=== PATIENT | male | born 1975 | race Caucasian/White ===

== ENCOUNTER 2020-02-09 06:40 | Outpatient (CLI) | payer OTHER, SELFPAY ==
--- NOTE | 2020-02-09 06:57 | ECHO_ITS ---
Patient Info Name: Atif Temple Age: 44 years : 1975 Gender: Male Ht: 66 in Wt: 168 lbs BSA: 1.90 m2 HR: 78 bpm BP: 120 / 80 mmHg Heart Rhythm: Sinus Rhythm Technical Quality: Good Exam Date: 02/09/2020 7:04 AM Exam Location: [facility] Patient Status: Outpatient Admit Date: 02/09/2020 Staff Ordering Physician: Cornelio Luke DO [employer]worker: Jannet Arias RDCS Attending Provider: Cornelio Luke DO Referring Physician: Ti GARCIA; Exam Type: CA echo doppler color flow Study Info Indications I42.9 - Cardiomyopathy, unspecified Complete two-dimensional, color flow and Doppler transthoracic echocardiogram is performed. Summary 1. Left ventricular chamber dimension is severely enlarged. 2. Left ventricular systolic function is severely reduced, estimated at 15-20%. 3. The left ventricular diastolic function is grade II diastolic dysfunction. 4. E/e' 16 is elevated. 5. Global longitudinal strain is abnormal at -7.5%. 6. Linear artifact in right ventricle suggestive of catheter(s), pacemaker lead(s), or ICD lead(s). 7. Linear artifact in the right atrium suggestive of catheter(s), pacemaker lead(s), or ICD lead(s). 8. There is mild mitral valve regurgitation. 9. There is mild tricuspid valve regurgitation. 10. No pulmonary hypertension, estimated pulmonary arterial systolic pressure is 27 mmHg. 11. There is trace pulmonic regurgitation. Left Ventricle E/e' 16 is elevated. Global longitudinal strain is abnormal at -7.5%. Left ventricular chamber dimension is severely enlarged. Left ventricular systolic function is severely reduced, estimated at 15-20%. The left ventricular diastolic function is grade II diastolic dysfunction. Right Ventricle Linear artifact in right ventricle suggestive of catheter(s), pacemaker lead(s), or ICD lead(s). Right ventricular chamber dimension is normal. Right ventricular systolic function is normal. Left Atria Left atrial chamber dimension is normal. Right Atria Linear artifact in the right atrium suggestive of catheter(s), pacemaker lead(s), or ICD lead(s). Right atrial chamber dimension is normal. Aortic Valve The aortic valve is trileaflet. There is no aortic valve stenosis. There is no aortic valve regurgitation. Pulmonic Valve There is trace pulmonic regurgitation. Mitral Valve There is no mitral valve stenosis. There is mild mitral valve regurgitation. Tricuspid Valve There is mild tricuspid valve regurgitation. No pulmonary hypertension, estimated pulmonary arterial systolic pressure is 27 mmHg. Pericardium/Pleural There is trivial pericardial effusion. Inferior Vena Cava Normal inferior vena cava with >50% collapse upon inspiration consistent with normal right atrial pressure, 5 mmHg. Aorta The aortic root size at the sinus of Valsalva is normal. Left Ventricular Outflow Tract Name Value Normal LVOT 2D LVOT Diameter 2.0 cm LVOT Doppler LVOT Peak Velocity 126 cm/s LVOT Peak Gradient 6 mmHg LVOT Mean Gradient 3 mmHg L
== END 2020-02-09 06:41 | disposition home or self-care (01) ==
PROVIDERS: Visit Provider Internal Medicine Cardiovascular Disease
DX: I42.8 Other cardiomyopathies (principal); I08.3 Combined rheumatic disorders of mitral, aortic and tricuspid valves
CPT/HCPCS: 93306

== ENCOUNTER 2020-03-27 13:30 | Emergency (ER) | payer OTHER, SELFPAY ==
[2020-03-27 13:38] VITALS: BP 137/88; PULSE 90; RESP 12; TEMP 36.1; O2SAT 100
--- NOTE | 2020-03-27 14:10 | ED.EAR ---
HPI - Ear Problem General Chief complaint: Ear Stated complaint: left ear pain Time Seen by Provider: 03/27/20 13:40 History of Present Illness HPI Narrative: Patient is a 44-year-old male who presents ER with left ear pain. Worsening over the last 3 days. He put some peroxide in his ear which minimally improved his symptoms. He has no fever/chills/sweats. No ear drainage. Pain is worse with a normal relation of the left ear. He has no rash over his nose or his face or his ear. He has no change in his vision. He has not been swimming in any lakes or streams, he has not been in a hot tub. Concerned he may have an ear infection. Patient does report there is a tingling that radiates from his left ear into his right mandibular region and the side of his neck. Reports hearing is muffled in the left ear. Related Data Home Medications Medication Instructions Recorded Confirmed carvedilol 12/03/19 spironolactone 12/03/19 lisinopril 40 mg tablet 40 mg PO DAILY 02/28/20 02/28/20 Allergies Allergy/AdvReac Type Severity Reaction Status Date / Time No Known Allergies Allergy Verified 10/20/19 08:29 Review of Systems Review of Systems: All systems reviewed & are unremarkable except as noted in HPI and below Constitutional: Constitutional: Denies chills and Denies fever(s) ENT: Denies ear discharge, Reports otalgia, Denies facial pain, Reports hearing loss, Denies mouth pain, Denies nasal congestion, Denies neck pain, Denies tinnitus and Denies sore throat PMFSH Social History Social History Years smoked: 10 Smoking status: Current some day smoker Tobacco type: cigarettes Second hand tobacco smoke exposure: Yes Alcohol intake: current Exam Narrative: Exam Narrative: GENERAL: Well-appearing, well-nourished, and in no acute distress. HEAD: Normocephalic, atraumatic. EYES: PERRL and EOMI. ENT: Mucous membranes moist. Normal-appearing nose externally. Right tympanic membrane and ear canal are normal. Left tympanic membrane appears normal and intact however the ear canal was erythematous and slightly edematous. There is one area where is difficult to tell if there is a blister/vesicle/piece of dry skin. Patient has pain with manual manipulation of the left ear. The external ear shows no erythema/swelling/vesicles. There is no additional skin rashes to the face or nose. There is no facial droop. No mastoid tenderness or swelling on the left side. NECK: Supple. SKIN: Warm, dry, no rash. NEURO: No focal deficits. Alert and oriented x3. PSYCH: Normal mood and affect. Course Course Emergency Course: Discussed with patient that would like to treat him for an external ear infection as well as shingles. I am being very cautious as shingles that affects this nerve distribution can be quite debilitating and cause potentially facial paralysis or weakness. Patient be started on Ciprodex as well as acyclovir. He has been instructed to follow-up with his primary care physician. Vital Signs Vital signs: Vital Signs Temperature 96.9 F L 03/27/20 13:38 Pulse Rate 90 03/27/20 13:38 Respiratory Rate 12 03/27/20 13:38 Blood Pressure 137/88 03/27/20 13:38 Pulse Oximetry 100 03/27/20 13:38 Temperature 96.9 F L 03/27/20 13:38 Pulse Rate 90 03/27/20 13:38 Respiratory Rate 12 03/27/20 13:38 Blood Pressure 137/88 03/27/20 13:38 Pulse Oximetry 100 03/27/20 13:38 Medical Decision Making Vital Signs Vital Signs: Vital Signs Temperature 96.9 F L 03/27/20 13:38 Pulse Rate 90 03/27/20 13:38 Respiratory Rate 12 03/27/20 13:38 Blood Pressure 137/88 03/27/20 13:38 Pulse Oximetry 100 03/27/20 13:38 Temperature 96.9 F L 03/27/20 13:38 Pulse Rate 90 03/27/20 13:38 Respiratory Rate 12 03/27/20 13:38 Blood Pressure 137/88 03/27/20 13:38 Pulse Oximetry 100 03/27/20 13:38 Discharge Plan Discharge Clinical Impre
[2020-03-27 14:19] VITALS: BP 134/75; PULSE 80; RESP 16; O2SAT 99
== END 2020-03-27 14:21 | disposition home or self-care (01) ==
PROVIDERS: Emergency Provider Emergency Medicine; PCP Internal Medicine
DX: H60.92 Unspecified otitis externa, left ear (principal); B02.9 Zoster without complications; F17.210 Nicotine dependence, cigarettes, uncomplicated
CPT/HCPCS: 99283

== ENCOUNTER 2020-07-16 07:22 | Outpatient (CLI) | payer MEDICARE, MEDICAID, SELFPAY ==
--- NOTE | 2020-07-23 02:57 | SLEEP_ITS ---
Home Sleep Study DATE OF STUDY: 07/16/2020 ORDERING PHYSICIAN: Dr. Cornelio Luke. REASON FOR THE STUDY: Hypersomnia. HISTORY: This patient is a 44-year-old male, 5 feet 6 inches tall, weighing 170 pounds with a body mass index of 27.4. He complains of difficulty falling asleep at night and excessive daytime sleepiness. He rarely snores and it is not loud enough that others complain about it. He occasionally awakens at night with heartburn, belching, or coughing. He rarely awakens from sleep feeling short of breath. He constantly has trouble sleeping with a cold. Rarely gasps for breath at night, occasionally has breathing problems at night observed by his . He does not sweat excessively at night. He frequently notices his heart pounding or beating irregularly at night. He occasionally falls asleep during the day occasionally involuntarily, rarely while driving, occasionally during physical effort. He does not fall asleep with emotion, but he does occasionally have loss of muscle tone with strong emotion. He occasionally has daytime difficulties due to excessive sleepiness. He is currently retired. He is 44 years old and I do not know what his prior job was. He constantly has vivid dreamlike scenes upon awakening or falling asleep. He constantly is afraid to go to sleep. He occasionally has nightmares. He rarely remembers his dreams. He constantly has racing thoughts. He occasionally feels sad, depressed, and anxious. He constantly has muscular tension. He frequently notices parts of his body jerking. He does not kick at night. He occasionally has crawly achy feelings in his legs and leg pain at night. He does not have morning jaw pain. He does not grind his teeth during sleep. He is constantly bothered by pain during the day, occasionally is awakened by pain at night. He constantly wakes up feeling stiff in the morning with sore achy muscles and pain in the neck and spine. He has dizziness, fatigue, memory problems, insomnia, concentration difficulties, difficulties making decisions, feels tensed and is unable to relax. Bedtime is 10:30 to 11 p.m., taking 2-3 hours to fall asleep, occasionally waking at night. During that time, he will get up and watch television. He does not list what time he wakes in the morning. Bedtime on the weekends is between 1 a.m. and 3 a.m. He does not take naps. A short nap may be refreshing. He feels better in the morning than other times of day. MEDICAL COMORBIDITIES: Hypertension, nonischemic cardiomyopathy, implantable cardioverter defibrillator, smoking. MEDICATIONS: 1. Lisinopril 40 mg a day. 2. Spironolactone 25 mg a day. 3. Carvedilol 50 mg twice a day. HABITS: Tobacco, a quarter pack per day. Caffeine, 4 or 5 daily. Alcohol is on average less than 1 daily. DESCRIPTION OF THE STUDY: On the [place] Sleepiness Scale, his score is 12, elevated. This was conducted as an unattended type III portable home sleep test with 4-channel monitoring including respiratory effort channel, snoring channel, oxygen saturation channel, and heart rate channel. The study was scored using [facility] guidelines. Duration was 8 hours 25 minutes. Apnea-hypopnea index was 3.2. Oxygen desaturation index is 3.1. Lowest desaturation is 87%. He had 1 central apnea, 26 hypopneas, 142 snoring events and desaturated 26 times spending 2 minutes below 88% saturation. Heart rate ranged from 48 which is normal up to 107, which is slightly elevated. IMPRESSION: 1. This home sleep study does not show evidence of significant sleep-disordered breathing. The apnea-hypopnea index is 3.2. However, he does have a low baseline average saturation of 93%, and desaturation to 87%, so he does have some nocturnal hypoxemia. This is a concern g
== END 2020-07-16 07:23 | disposition home or self-care (01) ==
LOC: ANHCSM 07:23
PROVIDERS: PCP Internal Medicine; Visit Provider Internal Medicine Cardiovascular Disease
DX: G47.10 Hypersomnia, unspecified (principal)
CPT/HCPCS: 95806

== ENCOUNTER 2020-08-12 08:12 | Outpatient (CLI) | payer MEDICARE, MEDICAID, SELFPAY ==
[2020-08-12 08:40] LABS: Basophils Absolute Auto 0.1 K/mm3 (0.0-0.1); Basophils Percent Auto 1.1 % (0.2-1.2); Eosinophils Absolute Auto 0.4 K/mm3 (0-0.3); Eosinophils Percent Auto 6.1 % (0-4.4); Hematocrit 40.2 % (42.0-52.0); Hemoglobin 13.8 g/dL (14.0-18.0); Immature Granulocyte Absolute 0.01 K/mm3 (0.00-0.031); Immature Granulocyte Percent A 0.1 % (0-0.5); Lymphocytes Absolute Auto 2.65 K/mm3 (0.9-3.2); Lymphocytes Percent Auto 36.9 % (18.3-44.2); Mean Corpuscular HGB Conc 34.3 g/dl (32-36); Mean Corpuscular Hemoglobin 30.8 pg (26-34); Mean Corpuscular Volume 89.7 fl (80-100); Mean Platelet Volume 12.5 fl (7.4-10.4); Monocytes Absolute Auto 0.6 K/mm3 (0.1-0.6); Monocytes Percent Auto 8.2 % (2.6-8.5); Neutrophils Absolute Auto 3.4 K/mm3 (1.3-6.7); Neutrophils Percent Auto 47.6 % (45.5-73.1); Platelet Count Result 124 k/mm3 (150-375); Red Blood Count 4.48 M/mm3 (4.6-6.20); Red Cell Distribution Width 12.6 % (11.5-14.5); White Blood Count 7.2 K/mm3 (4.5-10.0)
[2020-08-12 08:46] LABS: Hemoglobin A1C 6.6 % (<5.7)
[2020-08-12 08:49] LABS: Alanine Aminotransferase 21 U/L (4-50); Albumin Level 4.2 g/dL (3.5-5.1); Alkaline Phosphatase 32 U/L (38-126); Anion Gap 4 mmol/L (8-16); Aspartate Amino Transferase 19 U/L (17-59); Bilirubin,Total 0.3 mg/dL (0.2-1.3); Blood Urea Nitrogen 20 mg/dL (9-20); Calcium 9.1 mg/dL (8.4-10.2); Carbon Dioxide 25 mmol/L (22-30); Chloride 106 mmol/L (98-107); Cholesterol 157 mg/dL (0-200); Estimated Glomerular Filt Rate > 60; Glucose 136 mg/dL (75-110); HDL Direct 34 mg/dL; Potassium 4.7 mmol/L (3.4-5.0); Sodium 135 mmol/L (137-145); Triglycerides 197 mg/dL (<150)
[2020-08-12 09:00] LABS: LDL Cholesterol Direct 99 mg/dL
[2020-08-12 09:17] LABS: Creatinine Urine 104.8 mg/dL
[2020-08-12 09:34] LABS: MALB Creatinine Ratio < 5.7 mg/g (0-30); Microalbumin Urine Random < 6.0 mg/L (0-16.7)
[2020-08-16 04:20] LABS: Insulin Level Total 20.4 uIU/mL (<=19.6)
[2020-08-16 13:50] LABS: C-Peptide 3.08 ng/mL (0.80-3.85)
[2020-08-16 17:09] LABS: Glutamic acid decarboxylase AA <5 IU/mL (<5)
== END 2020-08-12 08:13 | disposition home or self-care (01) ==
LOC: ANHLAB 08:18
PROVIDERS: PCP Internal Medicine; Visit Provider Internal Medicine Endocrinology, Diabetes & Metabolism
DX: E11.9 Type 2 diabetes mellitus without complications (principal); E10.9 Type 1 diabetes mellitus without complications
CPT/HCPCS: 36415; 80053; 80061; 82043; 83036; 83525; 84681; 85025; 86341

== ENCOUNTER 2020-08-15 18:51 | Emergency (ER) | payer MEDICARE, MEDICAID, SELFPAY ==
--- NOTE | ~2020-08-15 | US_ITS ---
EXAMINATION: US scrotum doppler DATE: 08/15/2020 21:22 INDICATION: Right testicular pain TECHNIQUE: Testicular sonogram utilizing grayscale and Doppler COMPARISON: None. FINDINGS: The right testis measures 4.0 x 2.0 x 4.0 cm. The left testis measures 3.3 x 2.0 x 3.0 cm. There is normal vascular flow to both testes. The right epididymis is normal with normal vascular leonardo w. The left epididymis is normal with normal vascular flow. A tiny right hydrocele is noted. IMPRESSION: 1. No sonographic correlate for the patient's symptoms. Reviewed, dictated and finalized at location A.
[2020-08-15 18:56] VITALS: BP 163/109; PULSE 96; RESP 13; TEMP 36.6; O2SAT 100
--- NOTE | 2020-08-15 19:11 | ED.MALEGU ---
HPI - Male Genitourinary General Chief complaint: Urogenital-Male Stated complaint: flank, testicle pain Time Seen by Provider: 08/15/20 19:03 Source: patient History of Present Illness HPI Narrative: Pt c/o right testicular pain started 1 week. Pt states his pain is 6/10, aching. Denies any swelling. Denies any injury to the area. Related Data Home Medications Medication Instructions Recorded Confirmed carvedilol 12/03/19 06/03/20 spironolactone 12/03/19 06/03/20 lisinopril 40 mg tablet 40 mg PO DAILY 02/28/20 06/03/20 Allergies Allergy/AdvReac Type Severity Reaction Status Date / Time No Known Allergies Allergy Verified 08/15/20 20:53 Review of Systems Review of Systems: All systems reviewed & are unremarkable except as noted in HPI and below Constitutional: Constitutional: Denies body ache(s), Denies chills, Denies excessive sweating, Denies fatigue, Denies fever(s), Denies headache(s), Denies lethargy, Denies malaise, Denies weakness and Denies weight loss Eyes: Eyes: Denies blurry vision, Denies change in vision and Denies loss of vision ENT: Denies dizziness, Denies ear discharge, Denies headache(s), Denies lip swelling, Denies epistaxis, Denies nasal congestion, Denies neck pain, Denies throat swelling and Denies tongue swelling Cardiovascular: Cardiovascular: Denies chest pain, Denies chest pain at rest, Denies chest pain with activity, Denies diaphoresis, Denies rapid heart rate, Denies edema, Denies irregular heart rhythm, Denies lightheadedness, Denies palpitations, Denies dyspnea and Denies dyspnea on exertion Respiratory: Respiratory: Denies chest congestion, Denies cough, Denies hemoptysis, Denies dyspnea and Denies dyspnea on exertion Gastrointestinal: Gastrointestinal: Denies abdominal pain, Denies melena, Denies hematochezia, Denies diarrhea, Denies nausea, Denies vomiting and Denies hematemesis Musculoskeletal: Musculoskeletal: Denies abnormal gait, Denies deformity, Denies joint swelling, Denies limited range of motion, Denies neck pain and Denies numbness Neurologic: Denies Abnormal speech present, Denies abnormal gait, Denies confusion, Denies dizziness, Denies headache(s), Denies focal weakness, Denies loss of vision, Denies numbness, Denies Other visual disturbances, Denies Sensory deficit (Neuro) and Denies weakness Psychiatric: Psychiatric: Denies confusion, Denies depression, Denies auditory hallucinations, Denies homicidal ideation and Denies suicidal ideation Endocrine: Endocrine: Denies cold intolerance, Denies excessive sweating, Denies fatigue, Denies heat intolerance and Denies palpitations Hematologic/Lymphatic: Hematologic/Lymphatic: Denies easy bleeding and Denies easy bruising Allergic/Immunologic: Allergic/Immunologic: Denies lip swelling, Denies throat swelling and Denies tongue swelling PMFSH Social History Social History Years smoked: 10 Smoking status: Current some day smoker Tobacco type: cigarettes Second hand tobacco smoke exposure: Yes Alcohol intake: current Exam Const: General: cooperative, healthy appearing, comfortable, no acute distress, well developed, alert and awake; No confusion Orientation/consciousness: oriented to person, oriented to place, oriented to time, patient oriented x3 and No confusion Limitations: no limitations HENMT: Head: normal to inspection, normocephalic and atraumatic Ears: hearing grossly normal bilaterally, TM normal on the right and TM normal on the left General nose exam: Normal external nose present, Normal nares present and No nasal discharge present Face and sinus: normal facial exam Mouth: Yes Normal oral and palatal mucosa present, Yes lip normal, Yes tongue normal and Yes oropharynx normal Throat: posterior oropharynx normal, tonsils normal and uvula midline Eyes: General: appearance normal, both eyes and all related structures Pupils: Equal, round and reactive pupils prese
[2020-08-15 19:41] VITALS: BP 145/89; PULSE 88; RESP 17; O2SAT 98
[2020-08-15 19:56] LABS: Add Urine Microscopic? NO; Appearance Urine Clear (Clear); Bilirubin Urine Negative (Negative); Blood Urine Negative (Negative); Color Urine Colorless (Yellow); Glucose Urine UA Negative (Negative); Ketones Urine Negative (Negative); Leukocyte Esterase Ur Negative LEU/UL (Negative); Nitrate Urine Negative (Negative); Protein Urine Negative (Negative); Specific Grav Ur 1.005 (1.001-1.035); Urobilinogen Urine Negative mg/dL (<2.0)
[2020-08-15 19:57] LABS: RBC Urine 0-2 /hpf (0-2); WBC Urine 0-3 /hpf
--- NOTE | 2020-08-15 20:39 | PC.NURSE ---
Ultrasound called in at 194.
[2020-08-15 20:40] VITALS: BP 153/91; PULSE 85; RESP 15; O2SAT 98
[2020-08-15] MEDS: KETOROLAC (*BKC) 60 MG/2 ML VIAL 30 MG IM (20:52)
[2020-08-15 22:20] VITALS: BP 151/88; PULSE 80; RESP 17; O2SAT 96
== END 2020-08-15 22:20 | disposition home or self-care (01) ==
PROVIDERS: Emergency Provider Emergency Medicine
DX: N50.811 Right testicular pain (principal); F17.210 Nicotine dependence, cigarettes, uncomplicated
CPT/HCPCS: 76870; 81003; 93976; 96372; 99284; J1885

== ENCOUNTER 2020-08-20 08:35 | Outpatient (CLI) | payer MEDICARE, MEDICAID, SELFPAY ==
[2020-08-20 09:28] LABS: Immature Reticulocyte Fraction 8.7 % (3.0-15.9); Reticulocyte Hemoglobin Conten 34.3 pg (28.2-35.7); Reticulocytes Absolute 0.06 B/L (32.2-175.7)
[2020-08-20 10:08] LABS: Iron 60 ug/dL (49-181)
[2020-08-20 10:33] LABS: Percent Iron Saturation 18 % (20-50)
[2020-08-20 11:31] LABS: Folic Acid 13.5 ng/mL (2.76->20)
[2020-08-20 12:40] LABS: IFOB Positive Control Positive; Immunochemical Fecal Occult Bl Negative (N)
== END 2020-08-20 08:36 | disposition home or self-care (01) ==
PROVIDERS: Visit Provider Internal Medicine Endocrinology, Diabetes & Metabolism
DX: D64.9 Anemia, unspecified (principal)
CPT/HCPCS: 36415; 82274; 82607; 82728; 82746; 83540; 83550; 85046

== ENCOUNTER 2020-11-29 18:49 | Emergency (ER) | payer MEDICARE, MEDICAID, SELFPAY ==
--- NOTE | ~2020-11-29 | XR_ITS ---
EXAMINATION: XR chest 2V EXAM DATE: 11/29/2020 19:19 INDICATION: Central chest pain, shortness of breath. TECHNIQUE: Frontal and lateral projections of the chest obtained and reviewed. Comparison is made to prior examination from 12/03/2019. FINDINGS: There is single lead pacemaker/AICD device seen with tip projecting over the expected loca tion of right ventricle. The lungs are clear. There are no pleural effusions. The cardiomediastinal silhouette is within normal limits. There is no pneumothorax suspected. The bones and soft tissues are unremarkable. There are cholecystectomy clips. IMPRESSION: No acute cardiopulmonary findings. Reviewed, dictated and finalized at location A. 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
--- NOTE | 2020-11-29 18:55 | ECG_ITS ---
Measurements Intervals [place] Rate: 89 P: 38 VT: 166 QRS: -24 QRSD: 117 T: 20 QT: 350 QTc: 427 Interpretive Statements SINUS RHYTHM INTRAVENTRICULAR CONDUCTION DELAY DELAYED PRECORDIAL R/S TRANSITION LEFT VENTRICULAR HYPERTROPHY AND ST-T CHANGE BORDERLINE T WAVE ABNORMALITY- INFERIOR LEADS BASELINE WANDER- II, III BORDERLINE ECG Electronically Signed On 11-30-2020 7:20:25 [facility] by Cornelio Luke D.O.
[2020-11-29 18:56] VITALS: PULSE 88; RESP 18; TEMP 36.3; O2SAT 100
[2020-11-29 18:59] VITALS: PULSE 93; O2SAT 97
[2020-11-29 19:10] LABS: Basophils Absolute Auto 0.1 K/mm3 (0.0-0.1); Basophils Percent Auto 0.9 % (0.2-1.2); Eosinophils Absolute Auto 0.5 K/mm3 (0-0.3); Eosinophils Percent Auto 5.5 % (0-4.4); Hematocrit 41.2 % (42.0-52.0); Hemoglobin 14.4 g/dL (14.0-18.0); Immature Granulocyte Absolute 0.06 K/mm3 (0.00-0.031); Immature Granulocyte Percent A 0.6 % (0-0.5); Lymphocytes Absolute Auto 3.63 K/mm3 (0.9-3.2); Mean Corpuscular Hemoglobin 30.3 pg (26-34); Mean Corpuscular Volume 86.7 fl (80-100); Mean Platelet Volume 12.2 fl (7.4-10.4); Monocytes Absolute Auto 0.8 K/mm3 (0.1-0.6); Monocytes Percent Auto 8.4 % (2.6-8.5); Neutrophils Absolute Auto 4.7 K/mm3 (1.3-6.7); Neutrophils Percent Auto 47.6 % (45.5-73.1); Platelet Count Result 149 k/mm3 (150-375); Red Blood Count 4.75 M/mm3 (4.6-6.20); Red Cell Distribution Width 12.5 % (11.5-14.5); White Blood Count 9.8 K/mm3 (4.5-10.0)
--- NOTE | 2020-11-29 19:17 | ED.CHESTPAIN ---
HPI - Chest Pain General Chief Complaint: Chest Pain Stated Complaint: sob Time Seen by Provider: 11/29/20 19:02 Source: RN notes reviewed History of Present Illness HPI narrative: Patient presents emergency department from home for chest pain. Patient states he had been working with some insulation when the insulation had fallen down. He states at that time he is able to clean it up as he was wearing gloves but states he was not wearing a mask he states he did have some rhinorrhea at that point patient states shortly later he come inside and began to experience chest pain over the left side of the chest as well as shortness of breath that she continues to have. Patient states nothing makes the pain better or worse he does note some mild nausea with the pain he denies any fevers or chills vomiting diarrhea or any other symptoms he states he felt fine earlier today prior to this episode Related Data Home Medications Medication Instructions Recorded Confirmed carvedilol 12/03/19 06/03/20 spironolactone 12/03/19 06/03/20 Allergies Allergy/AdvReac Type Severity Reaction Status Date / Time No Known Allergies Allergy Verified 08/15/20 20:53 Review of Systems Review of Systems: Narrative: Gen.: Denies fevers or chills Eyes: Denies eye pain or visual change ENT: Reports rhinorrhea Respiratory: Denies shortness of breath or cough CV: Reports chest pain GI: Denies abdominal pain, reports nausea emesis or diarrhea Musculoskeletal: Denies back pain or muscle pain Neuro: Denies numbness, tingling, weakness or focal weakness Skin: Denies rash Except as documented, all other systems reviewed and negative [facility] Past Medical History Medical History (Updated 11/29/20 @ 22:38 by Boubacar Olivares DO) Asthma Cardiomyopathy CHF (congestive heart failure) History of chemotherapy History of radiation therapy Hodgkin lymphoma HTN (hypertension) Pacemaker Surgical History Surgical History History of appendectomy History of cardiac defibrillator placement History of cholecystectomy History of removal of Port-a-Cath History of surgery Lymph node resection's Family History Family History Mother Diabetes mellitus Family history of cardiovascular disease Hypertension Family history of diabetes mellitus in first degree relative Father Family history of cardiovascular disease Family history of malignant neoplasm Family history of heart disease in male family member before age 55 Other Family history of lung disease Social History Social History Years smoked: 10 Smoking status: Current some day smoker Tobacco type: cigarettes Second hand tobacco smoke exposure: Yes Alcohol intake: current Gender identity (if verbalized by the patient): Male Exam Narrative: Exam Narrative: APPEARANCE: No acute distress, nontoxic, resting in bed EYES: EOMI HEENT: Normocephalic, atraumatic, OMM RESPIRATORY: No respiratory distress Clear to auscultation bilaterally with no rhonchi wheezing or rales. CARDIOVASCULAR: Regular rate and rhythm without murmurs rubs or gallops. ABDOMINAL: Soft, nontender, nondistended, no rebound or guarding MUSCULOSKELETAl: Moves all extremities. No clubbing, cyanosis or edema. NEURO: Awake and alert. Following commands, speech normal, no focal deficits SKIN:: Warm, dry. No rashes lesions or abrasions PSYCHIATRIC: Normal affect/mood, Course Course Emergency Course: Reviewed old records Called and discussed with Dr. Luke presentation work-up agrees with admission at this time When discussed with patient he does not wish to be admitted at this time. I discussed with him my conversation with Dr. Qureshi as well as his medical history discussed concern for heart attack and need for serial troponins as they can not become elevated
[2020-11-29 19:20] LABS: Partial Thromboplastin Time 22.2 SECONDS (22.3-36.8); Prothrombin Time 13.8 Seconds (11.1-14.7)
[2020-11-29] MEDS: ASPIRIN 81 MG CHEWABLE TABLET 324 MG PO (19:35)
[2020-11-29 19:37] LABS: Alanine Aminotransferase 37 U/L (4-50); Albumin Level 4.6 g/dL (3.5-5.1); Alkaline Phosphatase 45 U/L (38-126); Anion Gap 9 mmol/L (8-16); Aspartate Amino Transferase 28 U/L (17-59); Bilirubin,Total 0.5 mg/dL (0.2-1.3); Blood Urea Nitrogen 21 mg/dL (9-20); Calcium 9.7 mg/dL (8.4-10.2); Carbon Dioxide 24 mmol/L (22-30); Chloride 105 mmol/L (98-107); Estimated CRCL calculation 89 ml/min; Estimated Glomerular Filt Rate > 60; Glucose 118 mg/dL (75-110); Lipase 101 U/L (23-300); Potassium 4.1 mmol/L (3.4-5.0); Sodium 138 mmol/L (137-145)
[2020-11-29] MEDS: MORPHINE SULFATE (*CRX) 2 MG/ML INJ IV PUSH (19:41)
[2020-11-29 19:48] LABS: NT Pro B Type Natriuretic Pept 230 PG/ML (5-100); Troponin I < 0.012 ng/mL (0.000-0.034)
[2020-11-29 22:28] LABS: Troponin I 0.013 ng/mL (0.000-0.034)
--- NOTE | 2020-11-29 23:27 | PC.NURSE ---
Patient Left AMA.
== END 2020-11-29 23:25 | disposition left against medical advice (07) ==
PROVIDERS: Emergency Medicine; Emergency Provider Emergency Medicine
DX: R07.9 Chest pain, unspecified (principal); J45.909 Unspecified asthma, uncomplicated; I50.9 Heart failure, unspecified; I10 Essential (primary) hypertension; Z95.0 Presence of cardiac pacemaker; Z92.21 Personal history of antineoplastic chemotherapy; Z92.3 Personal history of irradiation; Z85.71 Personal history of Hodgkin lymphoma; F17.210 Nicotine dependence, cigarettes, uncomplicated; I45.9 Conduction disorder, unspecified; R94.31 Abnormal electrocardiogram [ECG] [EKG]; I51.7 Cardiomegaly
CPT/HCPCS: 36415; 71046; 80053; 82248; 83690; 83880; 84484; 85025; 85610; 85730; 93005; 96374; 99284; A9270; J2270

== ENCOUNTER 2020-12-11 11:21 | Outpatient (CLI) | payer MEDICARE, MEDICAID, SELFPAY ==
[2020-12-19 09:45] LABS: FECFAT Total Specimen Weight 358 g; Fecal Lipids, 24 hr 10 g/24 h (<7)
== END 2020-12-11 11:22 | disposition home or self-care (01) ==
PROVIDERS: Visit Provider Internal Medicine Endocrinology, Diabetes & Metabolism
DX: E11.9 Type 2 diabetes mellitus without complications (principal); R19.7 Diarrhea, unspecified
CPT/HCPCS: 36415; 82710; 83520

== ENCOUNTER 2020-12-15 20:02 | Emergency (ER) | payer MEDICARE, MEDICAID, SELFPAY ==
--- NOTE | ~2020-12-15 | XR_ITS ---
EXAMINATION: XR chest 2V EXAM DATE: 12/15/2020 20:25 INDICATION: swallowed nail,hx chf,asthma,htn,pacemaker, stuck in throat . TECHNIQUE: Frontal and lateral projections of the chest obtained and reviewed. Comparison is made to prior examination from 11/29/2020. FINDINGS: There is single lead pacemaker/AICD device seen with tip projecting over the expected loca tion of right ventricle. There are cholecystectomy clips. No other radiopaque foreign bodies. No conf luent consolidation, pneumothorax or pleural effusion suspected. Cardiomediastinal silhouette is nor mal. Mild thoracic spondylosis. IMPRESSION: Pacemaker, cholecystectomy clips. Reviewed, dictated and finalized at location A. PUSHER
--- NOTE | ~2020-12-15 | XR_ITS ---
EXAMINATION: XR abdomen/kub 1V EXAM DATE: 12/15/2020 20:24 INDICATION: Accident 20 swallowed nail(S) X30 minutes ago, left-sided abdominal pain. TECHNIQUE: Frontal projection of the upper abdomen, frontal projection lower abdomen/pelvis for inter pretation. There is no prior study for comparison. FINDINGS: There are cholecystectomy clips. Single lead pacemaker/AICD device. Nonobstructive bowel g as pattern. There is no organomegaly. There are mild bony degenerative changes. Lung bases unremarkab le. IMPRESSION: Unremarkable KUB exam. Reviewed, dictated and finalized at location A. SHOE PERSON IMPRESSION: Unremarkable KUB exam.
--- NOTE | ~2020-12-15 | XR_ITS ---
EXAMINATION: XR soft tissue neck EXAM DATE: 12/15/2020 21:11 INDICATION: Swallowed a nail. TECHNIQUE: Frontal and lateral projections of the neck. There is no prior study for comparison. FINDINGS: Pacemaker and glasses are the only radiopaque foreign bodies identified on this soft tissue neck examination. Prevertebral soft tissue and pre-dens space are within normal limits. Airway is un remarkable. Mild cervical spondylosis. IMPRESSION: Unremarkable soft tissue neck exam. Reviewed, dictated and finalized at location A. S FARMER
[2020-12-15 20:07] VITALS: BP 150/98; PULSE 89; RESP 20; TEMP 36.7; O2SAT 99
--- NOTE | 2020-12-15 20:52 | ED.SKABFB ---
HPI - Skin/Abscess/Foreign Bdy General Chief complaint: Skin/Abscess/Foreign Body Stated complaint: swallowed nails Time Seen by Provider: 12/15/20 20:27 History of Present Illness HPI narrative: Patient is a 44-year-old male who presents ER with concerns for ingesting some nails. Reports he was holding some small nails in his mouth while he was looking up hammering into the ceiling. He felt similar nail slide back into his throat and then he believes he swallowed an unknown quantity. He felt that sticking [place] and had episodes of emesis. He reports he did vomit up 1 male. He still has a little tickle in his throat. No difficulty breathing or swallowing at this time. Reports mild anxiousness and left upper quadrant discomfort. Related Data Home Medications Medication Instructions Recorded Confirmed carvedilol 12/03/19 12/09/20 spironolactone 12/03/19 12/09/20 atorvastatin 10 mg tablet 10 mg PO DAILY 12/09/20 12/09/20 Allergies Allergy/AdvReac Type Severity Reaction Status Date / Time No Known Allergies Allergy Verified 12/09/20 09:58 Review of Systems Constitutional: Constitutional: Denies chills, Denies fever(s) and Denies weakness ENT: Denies dysphagia, Denies nasal congestion and Reports sore throat Respiratory: Respiratory: Denies cough, Denies dyspnea and Denies wheezing Gastrointestinal: Gastrointestinal: Reports abdominal pain, Reports nausea and Reports vomiting PMFSH Past Medical History Medical History (Updated 12/15/20 @ 21:23 by Santhosh Morales MD) Asthma Cardiomyopathy CHF (congestive heart failure) History of chemotherapy History of radiation therapy Hodgkin lymphoma HTN (hypertension) Pacemaker Surgical History Surgical History History of appendectomy History of cardiac defibrillator placement History of cholecystectomy History of removal of Port-a-Cath History of surgery Lymph node resection's Family History Family History Mother Diabetes mellitus Family history of cardiovascular disease Hypertension Family history of diabetes mellitus in first degree relative Father Family history of cardiovascular disease Family history of malignant neoplasm Family history of heart disease in male family member before age 55 Other Family history of lung disease Social History Social History Years smoked: 10 Smoking status: Current every day smoker Tobacco type: cigarettes Second hand tobacco smoke exposure: Yes Alcohol intake: current Gender identity (if verbalized by the patient): Male Exam Narrative: Exam Narrative: GENERAL: Well-appearing, well-nourished, and in no acute distress. HEAD: Normocephalic, atraumatic. ENT: Mucous membranes moist. Lacks dentition. Normal posterior oropharynx. CHEST: Clear to auscultation. No respiratory distress. HEART: Regular rate and rhythm. No murmur heard. Normal peripheral pulses. ABDOMEN: Soft, nontender, nondistended. NEURO: Alert and oriented x3. PSYCH: Normal mood and affect. Course Course Emergency Course: Patient resting comfortably. Informed results. Patient not experiencing symptoms of perforation or aspiration. No foreign body on imaging. Discharge home. Vital Signs Vital signs: Vital Signs Temperature 98.0 F 12/15/20 20:07 Pulse Rate 89 12/15/20 20:07 Respiratory Rate 20 12/15/20 20:07 Blood Pressure 150/98 H 12/15/20 20:07 Pulse Oximetry 99 12/15/20 20:07 Temperature 98.0 F 12/15/20 20:07 Pulse Rate 89 12/15/20 20:07 Respiratory Rate 20 12/15/20 20:07 Blood Pressure 150/98 H 12/15/20 20:07 Pulse Oximetry 99 12/15/20 20:07 MDM - Skin/Abscess/Foreign Bdy Imaging Data Radiologist's impression: ITS Impressions Abdomen X-Ray 12/15/20 20:25 IMPRESSION: Unremarkable KUB exam.
[2020-12-15 21:27] VITALS: BP 126/78; PULSE 78; RESP 18; O2SAT 99
== END 2020-12-15 21:29 | disposition home or self-care (01) ==
PROVIDERS: Emergency Provider Emergency Medicine
DX: R07.0 Pain in throat (principal); J45.909 Unspecified asthma, uncomplicated; I50.9 Heart failure, unspecified; I11.0 Hypertensive heart disease with heart failure; Z85.71 Personal history of Hodgkin lymphoma; Z92.21 Personal history of antineoplastic chemotherapy; Z92.3 Personal history of irradiation; Z95.810 Presence of automatic (implantable) cardiac defibrillator; F17.210 Nicotine dependence, cigarettes, uncomplicated
CPT/HCPCS: 70360; 71046; 74018; 99284

== ENCOUNTER 2020-12-30 13:09 | Outpatient (CLI) | payer MEDICARE, MEDICAID, SELFPAY ==
--- NOTE | 2020-12-30 13:22 | ECHO_ITS ---
Patient Info Name: Atif Temple Age: 45 years : 1975 Gender: Male Ht: 65 in Wt: 181 lbs BSA: 1.97 m2 HR: 72 bpm BP: 119 / 79 mmHg Heart Rhythm: Sinus Rhythm Technical Quality: Good Exam Date: 12/30/2020 1:40 PM Exam Location: [facility] Patient Status: Outpatient Admit Date: 12/30/2020 Staff Ordering Physician: Cornelio Luke DO Program And Research Coordinator: [place] RDCS Attending Provider: Cornelio Luke DO Referring Physician: Ti GARCIA; Exam Type: CA echo doppler color flow Study Info Indications I50.22 - Chronic systolic (congestive) heart failure Complete two-dimensional, color flow and Doppler transthoracic echocardiogram is performed. Strain analysis performed. History/Risk Factors CHF, NICM. Summary 1. Complete two-dimensional, color flow and Doppler transthoracic echocardiogram is performed. 2. Left ventricular chamber dimension is severely enlarged. 3. Left ventricular systolic function is severely reduced, estimated at 30-35%. 4. The left ventricular diastolic function is grade I diastolic dysfunction. 5. E/e' 14 is mildly elevated. 6. Global longitudinal strain is abnormal at -9.9%. 7. Linear artifact in right ventricle suggestive of catheter(s), pacemaker lead(s), or ICD lead(s). 8. Linear artifact in the right atrium suggestive of catheter(s), pacemaker lead(s), or ICD lead(s). 9. The mitral valve has mildly calcified annulus. 10. No pulmonary hypertension, estimated pulmonary arterial systolic pressure is 22 mmHg. 11. There is trace pulmonic regurgitation. Left Ventricle E/e' 14 is mildly elevated. Global longitudinal strain is abnormal at -9.9%. Left ventricular chamber dimension is severely enlarged. Left ventricular systolic function is severely reduced, estimated at 30-35%. The left ventricular diastolic function is grade I diastolic dysfunction. Right Ventricle Linear artifact in right ventricle suggestive of catheter(s), pacemaker lead(s), or ICD lead(s). Right ventricular chamber dimension is normal. Right ventricular systolic function is normal. Left Atria Left atrial chamber dimension is normal. Right Atria Linear artifact in the right atrium suggestive of catheter(s), pacemaker lead(s), or ICD lead(s). Right atrial chamber dimension is normal. Aortic Valve The aortic valve is trileaflet. There is no aortic valve stenosis. There is no aortic valve regurgitation. Pulmonic Valve There is trace pulmonic regurgitation. Mitral Valve The mitral valve has mildly calcified annulus. There is no mitral valve stenosis. There is no mitral valve regurgitation. Tricuspid Valve There is no tricuspid valve regurgitation. No pulmonary hypertension, estimated pulmonary arterial systolic pressure is 22 mmHg. Pericardium/Pleural There is no pericardial effusion. Inferior Vena Cava Normal inferior vena cava with >50% collapse upon inspiration consistent with normal right atrial pressure, 5 mmHg. Aorta The aortic root size at the sinus of Valsalva is normal. Left Ventricular Outflow Tract Name Value Normal LVOT 2D LVOT Diameter 2.1 cm LVOT Doppler
== END 2020-12-30 13:10 | disposition home or self-care (01) ==
PROVIDERS: Visit Provider Internal Medicine Cardiovascular Disease
DX: I50.22 Chronic systolic (congestive) heart failure (principal)
CPT/HCPCS: 93306

== ENCOUNTER 2021-01-14 13:17 | Outpatient (CLI) | payer MEDICARE, MEDICAID, SELFPAY ==
--- NOTE | ~2021-01-14 | CT_ITS ---
EXAMINATION: CT chest high resolution [facility] EXAM DATE: 01/14/2021 15:41 INDICATION: Dyspnea unspecified. Hodgkin's lymphoma. TECHNIQUE: Spiral CT of the chest without contrast. HRCT. Axial, coronal and sagittal images were re viewed. Coronal maximum intensity pixel images of chest reviewed. The dose-length product (DLP) for this examination was 262.28 mGy-cm. The exposure was tailored according to patient size (auto mA ex posure control), and iterative reconstruction (ASIR) was used as additional dose reduction technique. Correlation is made to chest x-ray 12/15/2019. FINDINGS: There is no intralobular septal thickening on the HRCT. There is a single lead pacemaker/A ICD device with tip is in the right ventricle. There is mild emphysema and hyperinflation. Small per icardial effusion. No pleural effusions. Tracheobronchial tree is patent. There is no mediastinal, hilar or axillary lymphadenopathy. There is no pneumothorax. Heart normal in size. There is mi ld coronary arterial calcification, arterial sclerosis. There is hepatic steatosis. Small bilateral adrenal adenomas larger on the right measuring 2.1 cm. Cholecystectomy clips. There is mild to moder ate thoracic spondylosis without osteoblastic or osteolytic lesions identified. IMPRESSION: 1. Mild emphysema and hyperinflation. 2. Adrenal adenomas. 3. Hepatic steatosis. Reviewed, dictated and finalized at location B. MANAGER
--- NOTE | 2021-01-14 16:25 | WPDPFTINT ---
PFT Interpretation This is a pulmonary function test with pre and post-bronchodilator spirometry, plethysmography and diffusing capacity. The test was performed and results interpreted in accordance with the 2019 and 2005 ATS/ERS Task Force guidelines respectively using the Deven/Enedina reference equations. Findings: Spirometry: The contour the inspiratory and expiratory flow tracing are normal. The pre bronchodilator FVC is 3.74 L, 89% predicted. The pre bronchodilator FEV1 is 2.84 L, 88% predicted. The FEV1: FVC ratio 76%. The post bronchodilator FVC is 3.77 L, representing a 1% increase. The post bronchodilator FEV1 is 2.89 L, representing a 2% increase. Plethysmography: The total lung capacity is 4.65 L, 82% predicted. The functional residual capacity is 1.32 L, 46% predicted. The residual volume is 0.82 L, 45% predicted. Diffusing capacity the absolute diffusion capacity is 17.4, 70% predicted. The diffusing capacity corrected for alveolar volume is 3.55, 86% predicted. Impression: There is a mild restrictive ventilatory abnormality with a normal FEV1. The spirometry is normal without evidence of an obstructive abnormality. There is no significant improvement after inhaling a single dose of albuterol. The diffusing capacity is normal. There are no prior studies for comparison
--- NOTE | 2021-01-14 16:28 | WPDSIXMINUTE ---
Six Minute Walk This is a 6 minutes walk test. The test was performed and interpreted in accordance with the 2014 ERS/ATS task force guidelines. Findings: The patient's resting room air oxygen saturation measured by pulse oximetry was 96% and her heart rate was 97 bpm. Patient ambulated for 396 meters and oxygen saturation remained 93 to 96%. Heart rate at the end of the study was 104 bpm. There are no prior studies for comparison.
== END 2021-01-14 13:18 | disposition home or self-care (01) ==
LOC: ANHPFT 13:19
PROVIDERS: Visit Provider Internal Medicine Critical Care Medicine
DX: R06.00 Dyspnea, unspecified (principal); J43.9 Emphysema, unspecified; D35.00 Benign neoplasm of unspecified adrenal gland; K76.0 Fatty (change of) liver, not elsewhere classified; R94.2 Abnormal results of pulmonary function studies
CPT/HCPCS: 71250; 94060; 94618; 94726; 94729

== ENCOUNTER 2021-01-28 14:34 | Emergency (ER) | payer MEDICARE, MEDICAID, SELFPAY ==
[2021-01-28 14:37] VITALS: BP 123/72; PULSE 73; RESP 20; TEMP 36.4; O2SAT 97
--- NOTE | 2021-01-28 16:04 | PC.NURSE ---
Notified us at 1603 he is leaving. States he feels better. drinking diet coke, respirations, skin signs, speech WNL. Advised of risks of leaving before evaluated including . States I know . Left with normal gait and posture.
== END 2021-01-28 16:10 | disposition left against medical advice (07) ==
DX: R06.9 Unspecified abnormalities of breathing (principal)
CPT/HCPCS: 99199

== ENCOUNTER 2021-06-06 06:50 | Outpatient (CLI) | payer MEDICARE, MEDICAID, SELFPAY ==
--- NOTE | ~2021-06-06 | XR_ITS ---
EXAMINATION: XR knee RT 3V DATE: 06/06/2021 07:59 INDICATION: Psoriasis, unspecified. TECHNIQUE: 3 views of right knee were obtained. COMPARISON: None. FINDINGS: Bone alignment is normal. No fracture. Patella is bipartite. There is mild osteoarthritis o f patellofemoral compartment characterized by tiny marginal osteophytes. No knee joint effusion. IMPRESSION: 1. Mild right knee osteoarthritis. Reviewed, dictated and finalized at location A.
--- NOTE | ~2021-06-06 | XR_ITS ---
XR lumbar spine min 4V DATE: 06/06/2021 08:00 INDICATION: Psoriasis TECHNIQUE: AP, lateral, coned lateral lumbosacral and bilateral oblique views COMPARISON: None FINDINGS: Normal alignment of the lumbar spine. No fracture, bone destruction, spondylolysis or spond ylolisthesis. The lumbar pedicles are intact. There is mild degenerative spurring of the mid and lower lumbar spine but the lumbar and lumbosacral interspaces are relatively well preserved. The sacroiliac joints are normal. Multiple surgical clips overlie the right upper quadrant, likely due to cholecystectomy. IMPRESSION: Mild degenerative spurring Reviewed, dictated and finalized at location B. IMPRESSION: Mild degenerative spurring
--- NOTE | ~2021-06-06 | XR_ITS ---
EXAMINATION: XR hand BI arthritis min 3V EXAM DATE: 06/06/2021 07:59 INDICATION: M19.90 - Unspecified osteoarthritis, unspecified site. TECHNIQUE: Right hand frontal, lateral and oblique projections obtained and reviewed. Left hand fron kevin, lateral and oblique projections obtained and reviewed. Catchers projection of both hands. There is no prior study for comparison. FINDINGS: Right hand: There is mild polyarticular right hand and wrist primary osteoarthritis. There are no bon y erosions identified. There are no acute fractures or dislocations identified. There is no subcut aneous gas. The soft tissue is unremarkable. There are no radiopaque foreign bodies. Left hand: There is minimal polyarticular left hand and wrist primary osteoarthritis less than contra lateral side. There are no bony erosions identified. There are no acute fractures or dislocations i dentified. There is no subcutaneous gas. The soft tissue is unremarkable. There are no radiopaque foreign bodies. IMPRESSION: Bilateral polyarticular osteoarthritis, right hand slightly more affected. Reviewed, dictated and finalized at location A. IMPRESSION: Bilateral polyarticular osteoarthritis, right hand slightly more af fected.
--- NOTE | ~2021-06-06 | XR_ITS ---
EXAMINATION: XR knee LT 3V DATE: 06/06/2021 08:00 INDICATION: Psoriasis, unspecified. TECHNIQUE: 3 views of left knee were obtained. COMPARISON: None. FINDINGS: Bone alignment is normal. No fracture. Patella is bipartite. There is mild osteoarthritis o f medial and patellofemoral compartments characterized by tiny marginal osteophytes. No knee joint ef fusion. IMPRESSION: 1. Mild left knee osteoarthritis. Reviewed, dictated and finalized at location A.
--- NOTE | ~2021-06-06 | XR_ITS ---
XR foot RT standing 2V DATE: 06/06/2021 08:00 INDICATION: Psoriasis TECHNIQUE: Standing AP and lateral views COMPARISON: None FINDINGS: Minimal plantar and posterior calcaneal enthesopathy. No fracture, dislocation, periosteal reaction or bone destruction or erosive change. IMPRESSION: Minimal plantar and posterior calcaneal enthesopathy Reviewed, dictated and finalized at location B.
--- NOTE | ~2021-06-06 | XR_ITS ---
XR foot LT standing 2V DATE: 06/06/2021 07:59 INDICATION: Psoriasis TECHNIQUE: Standing AP and lateral views COMPARISON: None FINDINGS: Minimal plantar calcaneal enthesopathy without associated erosive change or periostitis. No fracture, dislocation, periosteal reaction or bone destruction or erosive changes. IMPRESSION: Minimal plantar calcaneal enthesopathy Reviewed, dictated and finalized at location B.
--- NOTE | ~2021-06-06 | XR_ITS ---
XR sacroiliac joints min 3V DATE: 06/06/2021 08:00 INDICATION: Psoriasis TECHNIQUE: AP and oblique views COMPARISON: None FINDINGS: No fracture, dislocation, erosive change or ankylosis of the sacroiliac joints. IMPRESSION: No significant abnormality of the sacroiliac joints Reviewed, dictated and finalized at Location A. Reviewed, dictated and finalized at location B.
[2021-06-06 08:03] LABS: Rheumatoid Factor < 8.6 IU/ML (<12)
[2021-06-10 11:12] LABS: Anti Cyclic Citrullinated Pept <16 Units (<20)
[2021-06-10 12:00] LABS: Anti Nuclear Antibody Pattern Nuclear, Nucleolar; Anti Nuclear Antibody Titer 1:40 (Negative)
== END 2021-06-06 06:51 | disposition home or self-care (01) ==
LOC: ANHLAB 06:58
PROVIDERS: Referring Provider Internal Medicine Endocrinology, Diabetes & Metabolism; Visit Provider Internal Medicine
DX: L40.9 Psoriasis, unspecified (principal); M19.90 Unspecified osteoarthritis, unspecified site; E11.9 Type 2 diabetes mellitus without complications; E78.5 Hyperlipidemia, unspecified; M17.0 Bilateral primary osteoarthritis of knee; M19.041 Primary osteoarthritis, right hand; M19.042 Primary osteoarthritis, left hand
CPT/HCPCS: 36415; 72110; 72202; 73130; 73562; 73620; 82306; 86038; 86039; 86200; 86430

== ENCOUNTER 2021-09-18 16:20 | Emergency (ER) | payer MEDICARE, MEDICAID, SELFPAY ==
--- NOTE | ~2021-09-18 | XR_ITS ---
EXAMINATION: XR chest 2V DATE: 09/18/2021 17:15 INDICATION: Dizziness. Shortness of breath. TECHNIQUE: Frontal and lateral views of the chest were obtained. COMPARISON: Chest 2 views 12/15/2020, chest CT 01/14/2021 FINDINGS: The chest demonstrates clear lungs without pneumonia, pleural effusion, or pneumothorax. Th e heart size is normal. There is a left chest pacer/defibrillator with single lead in right ventricle . Surgical clips in the right upper quadrant are likely from cholecystectomy. IMPRESSION: 1. No acute cardiopulmonary disease. Reviewed, dictated and finalized at location A.
[2021-09-18 16:33] VITALS: BP 157/96; PULSE 99; RESP 16; TEMP 36.8; O2SAT 97
--- NOTE | 2021-09-18 16:37 | ECG_ITS ---
Measurements Intervals [place] Rate: 103 P: 54 RI: 162 QRS: -35 QRSD: 140 T: 89 QT: 338 QTc: 443 Interpretive Statements SINUS TACHYCARDIA LEFT AXIS DEVIATION INTRAVENTRICULAR CONDUCTION DELAY LEFT VENTRICULAR HYPERTROPHY WITH ST-T CHANGE BORDERLINE R WAVE PROGRESSION, ANTERIOR LEADS BASELINE ARTIFACT- I, III, AVR, AVL ABNORMAL ECG Electronically Signed On 09-18-2021 16:50:17 CDT by Cornelio Luke D.O.
[2021-09-18 16:54] LABS: Basophils Percent Auto 0.9 % (0.2-1.2); Eosinophils Absolute Auto 0.3 K/mm3 (0-0.3); Eosinophils Percent Auto 6.5 % (0-4.4); Hematocrit 44.6 % (42.0-52.0); Hemoglobin 15.4 g/dL (14.0-18.0); Immature Granulocyte Absolute 0.02 K/mm3 (0.00-0.031); Immature Granulocyte Percent A 0.5 % (0-0.5); Lymphocytes Absolute Auto 1.59 K/mm3 (0.9-3.2); Lymphocytes Percent Auto 36.8 % (18.3-44.2); Mean Corpuscular HGB Conc 34.5 g/dl (32-36); Mean Corpuscular Volume 89.9 fl (80-100); Monocytes Absolute Auto 0.7 K/mm3 (0.1-0.6); Monocytes Percent Auto 17.1 % (2.6-8.5); Neutrophils Absolute Auto 1.7 K/mm3 (1.3-6.7); Neutrophils Percent Auto 38.2 % (45.5-73.1); Platelet Count Result 97 k/mm3 (150-375); Red Blood Count 4.96 M/mm3 (4.6-6.20); Red Cell Distribution Width 12.7 % (11.5-14.5); White Blood Count 4.3 K/mm3 (4.5-10.0)
[2021-09-18 17:04] LABS: INR 0.9; Partial Thromboplastin Time 21.8 SECONDS (22.3-36.8); Prothrombin Time 12.4 Seconds (11.1-14.7)
[2021-09-18 17:11] LABS: Anion Gap 11 mmol/L (8-16); Blood Urea Nitrogen 14 mg/dL (9-20); Carbon Dioxide 26 mmol/L (22-30); Chloride 100 mmol/L (98-107); Estimated CRCL calculation 80 ml/min; Estimated Glomerular Filt Rate > 60; Glucose 237 mg/dL (65-110); Potassium 4.7 mmol/L (3.4-5.0); Sodium 137 mmol/L (137-145)
[2021-09-18 20:00] LABS: Troponin I 0.036 ng/mL (0.000-0.034)
[2021-09-18] MEDS: IPRATROPIUM BR 0.02% INH SOLN 0.5 MG/2.5 ML VIAL INHALATION (20:01)
[2021-09-18 20:02] VITALS: PULSE 80
[2021-09-18] MEDS: ALBUTEROL SULFATE NEB 2.5 MG/0.5 ML INH 5 MG INHALATION (20:02)
[2021-09-18 20:10] VITALS: PULSE 82
[2021-09-18 20:17] VITALS: BP 153/114; PULSE 100; RESP 20; TEMP 36.8; O2SAT 98
[2021-09-18] MEDS: ASPIRIN 81 MG CHEWABLE TABLET 324 MG PO (20:26)
[2021-09-18 20:44] LABS: NT Pro B Type Natriuretic Pept 1660 pg/mL (5-100)
--- NOTE | 2021-09-18 22:02 | ED.WEAKNESS ---
HPI - Weakness General Chief complaint: Weakness Stated complaint: COLD S/SX Time Seen by Provider: 09/18/21 19:17 History of Present Illness HPI Narrative: Patient is a 45-year-old male who presents to the ER with sinus congestion. Ongoing over the last week. Associated with subjective fevers and chills. Occasional cough. Also reports shortness of breath with exertion. Has history of heart failure and sees Dr. Luke. He denies chest pain. Patient denies Covid contacts. No loss of taste or smell. Reports he stopped taking his medication 2 weeks ago because he been feeling fatigued and stopped using his albuterol couple days ago because he did not know if would help with a viral infection. He reports he has been taking leftover antibiotics including amoxicillin and cephalexin over the last 2 days. Related Data Home Medications Medication Instructions Recorded Confirmed atorvastatin 10 mg tablet 10 mg PO DAILY 12/09/20 07/04/21 Allergies Allergy/AdvReac Type Severity Reaction Status Date / Time No Known Allergies Allergy Verified 09/18/21 20:28 Review of Systems Review of Systems: All systems reviewed & are unremarkable except as noted in HPI and below Constitutional: Constitutional: Reports chills, Reports fatigue and Reports fever(s) ENT: Reports nasal congestion and Denies sore throat Cardiovascular: Cardiovascular: Denies chest pain, Denies rapid heart rate and Denies radiating jaw, neck or arm pain Respiratory: Respiratory: Denies cough, Reports dyspnea and Reports wheezing Gastrointestinal: Gastrointestinal: Denies abdominal pain, Denies nausea and Denies vomiting PMFSH Past Medical History Medical History Anxiety Asthma Cardiomyopathy CHF (congestive heart failure) Diabetes Heart disease History of chemotherapy History of radiation therapy Hodgkin lymphoma HTN (hypertension) Pacemaker Surgical History Surgical History History of appendectomy History of cardiac defibrillator placement History of cholecystectomy History of removal of Port-a-Cath History of surgery Lymph node resection's Family History Family History Mother Diabetes mellitus Family history of cardiovascular disease Hypertension Family history of diabetes mellitus in first degree relative Father Family history of cardiovascular disease Family history of malignant neoplasm Family history of heart disease in male family member before age 55 Grandparent Hypertension Heart problem Cerebrovascular accident Other Family history of lung disease Social History Social History Smoking packs per day: 1 Smoking cigarettes per day: 20.0 Years smoked: 25 Smoking pack-years: 25.00 Smoking status: Former smoker (quit in 2020) Tobacco type: cigarettes Second hand tobacco smoke exposure: Yes Smoking end date: 11/22/20 Alcohol intake: current Alcohol use details: Social Substance use: never Substance use type: does not use Gender identity (if verbalized by the patient): Male Exam Narrative: GENERAL: Well-appearing, well-nourished, and in no acute distress. HEAD: Normocephalic, atraumatic. EYES: PERRL and EOMI. ENT: Mucous membranes moist. CHEST: Rhonchi bilaterally. No respiratory distress. HEART: Regular rate and rhythm. Normal peripheral pulses. ABDOMEN: Soft, nontender, nondistended, normal active bowel sounds. EXTREMITIES: Normal range of motion. No edema. SKIN: Warm, dry, no rash. NEURO: Alert and oriented x3. PSYCH: Normal mood and affect. Course Course Emergency Course: Patient informed about abnormal lab results. Patient was significant cardiomyopathy. Patient reports he will not stay in the hospital. Discussed with Dr. Luke is made aware of the situation. Patient arreola
== END 2021-09-18 22:10 | disposition left against medical advice (07) ==
PROVIDERS: Emergency Medicine; Emergency Provider Emergency Medicine
DX: J06.9 Acute upper respiratory infection, unspecified (principal); I50.9 Heart failure, unspecified; I11.0 Hypertensive heart disease with heart failure; J45.909 Unspecified asthma, uncomplicated; I42.9 Cardiomyopathy, unspecified; Z92.21 Personal history of antineoplastic chemotherapy; Z92.3 Personal history of irradiation; Z85.71 Personal history of Hodgkin lymphoma; Z95.810 Presence of automatic (implantable) cardiac defibrillator; Z87.891 Personal history of nicotine dependence; R00.0 Tachycardia, unspecified; I45.9 Conduction disorder, unspecified; I51.7 Cardiomegaly
CPT/HCPCS: 36415; 71046; 80048; 83880; 84484; 85025; 85610; 85730; 93005; 94640; 99284; A9270

== ENCOUNTER 2021-10-06 06:36 | Outpatient (CLI) | payer MEDICARE, MEDICAID, SELFPAY ==
[2021-10-06 07:35] LABS: Alanine Aminotransferase 30 U/L (4-50); Albumin Level 4.4 g/dL (3.5-5.1); Alkaline Phosphatase 31 U/L (38-126); Anion Gap 10 mmol/L (8-16); Aspartate Amino Transferase 24 U/L (17-59); Bilirubin,Total 0.4 mg/dL (0.2-1.3); Blood Urea Nitrogen 19 mg/dL (9-20); Calcium 9.8 mg/dL (8.4-10.2); Carbon Dioxide 25 mmol/L (22-30); Chloride 101 mmol/L (98-107); Cholesterol 184 mg/dL (0-200); Estimated Glomerular Filt Rate > 60; Glucose 200 mg/dL (65-110); HDL Direct 40 mg/dL; Potassium 4.2 mmol/L (3.4-5.0); Sodium 136 mmol/L (137-145); Triglycerides 140 mg/dL (<150)
[2021-10-06 07:43] LABS: Hemoglobin A1C 8.4 % (<5.7)
[2021-10-06 07:46] LABS: LDL Cholesterol Direct 121 mg/dL
[2021-10-06 07:57] LABS: Creatinine Urine 75.1 mg/dL
[2021-10-06 08:18] LABS: MALB Creatinine Ratio < 8.0 mg/g (0-30); Microalbumin Urine Random < 6.0 mg/L (0-16.7)
== END 2021-10-06 06:37 | disposition home or self-care (01) ==
LOC: ANHLAB 06:40
PROVIDERS: Visit Provider Internal Medicine Endocrinology, Diabetes & Metabolism
DX: E11.9 Type 2 diabetes mellitus without complications (principal); E78.5 Hyperlipidemia, unspecified
CPT/HCPCS: 36415; 80053; 80061; 82043; 83036; 84439; 84443

== ENCOUNTER 2022-01-12 11:48 | Emergency (ER) | payer OTHER, SELFPAY ==
--- NOTE | ~2022-01-12 | XR_ITS ---
XR foot RT min 3V 01/12/2022 12:32 INDICATION: Right foot pain PROCEDURE: 4 views right foot COMPARISON: No prior studies for comparison. FINDINGS: Fracture, dislocation or subluxation is not identified. The soft tissues appear within norm al limits. No foreign bodies are identified. IMPRESSION: 1: NO ACUTE BONE OR JOINT ABNORMALITY IDENTIFIED. Reviewed, dictated and finalized at location B. OR HOUSE [employer]GAN
[2022-01-12 11:53] VITALS: BP 145/77; PULSE 87; RESP 16; TEMP 36.5; O2SAT 100
--- NOTE | 2022-01-12 13:13 | ED.LOWEXIN ---
HPI - Extremity Injury (Lower) General Chief Complaint: Extremity Injury, Lower Stated Complaint: R. Foot pain Time Seen by Provider: 01/12/22 12:01 Source: patient and RN notes reviewed Mode of arrival: ambulatory Limitations: no limitations History of Present Illness HPI Narrative: This is a 46 year old male who presents for evaluation of right foot pain. He states last night he accidentally ran his foot into a shelf and this caused cinder blocks to fall onto his right forefoot. He has been treating with heat and ice. He reports his pain was improving and bearable but his wanted to make sure nothing is broken. He is able to move his toes but he does has some decreased ROM due to pain. He has not taken anything for pain. Rates pain 5/10. Related Data Home Medications Medication Instructions Recorded Confirmed atorvastatin 10 mg tablet 10 mg PO DAILY 12/09/20 07/04/21 Allergies Allergy/AdvReac Type Severity Reaction Status Date / Time No Known Allergies Allergy Verified 01/12/22 12:13 Review of Systems Review of Systems: All systems reviewed & are unremarkable except as noted in HPI and below PMFSH Past Medical History Medical History Anxiety Asthma Cardiomyopathy CHF (congestive heart failure) Diabetes Heart disease History of chemotherapy History of radiation therapy Hodgkin lymphoma HTN (hypertension) Pacemaker Surgical History Surgical History History of appendectomy History of cardiac defibrillator placement History of cholecystectomy History of removal of Port-a-Cath History of surgery Lymph node resection's Family History Family History Mother Diabetes mellitus Family history of cardiovascular disease Hypertension Family history of diabetes mellitus in first degree relative Father Family history of cardiovascular disease Family history of malignant neoplasm Family history of heart disease in male family member before age 55 Grandparent Hypertension Heart problem Cerebrovascular accident Other Family history of lung disease Social History Social History Smoking packs per day: 1 Smoking cigarettes per day: 20.0 Years smoked: 25 Smoking pack-years: 25.00 Smoking status: Former smoker (quit in 2020) Tobacco type: cigarettes Second hand tobacco smoke exposure: Yes Smoking end date: 11/22/20 Alcohol intake: current Alcohol use details: Social Substance use: never Substance use type: does not use Gender identity (if verbalized by the patient): Male Exam Const: General: no acute distress and alert Orientation/consciousness: patient oriented x3 Eyes: EOM: EOMs intact bilaterally Resp: Effort & Inspection: normal respiratory effort Skin: General skin exam: normal color Rashes: no rashes Other: no bruising or swelling Neuro: General: patient oriented x3, moves all extremities and CN's II-XI intact bilaterally Extrem: Other: mild TTP right 1st, 2nd MTP Psych: Mental Status: mental status grossly normal Affect: normal affect Course Reevaluation(s) Reevaluation #1: I have discussed with patient puneet. He will be given post op shoe. I discussed discharge plan Date: 01/12/22 Time: 13:30 Vital Signs Vital signs: Vital Signs Temperature 97.7 F 01/12/22 11:53 Pulse Rate 87 01/12/22 11:53 Respiratory Rate 16 01/12/22 11:53 Blood Pressure 145/77 H 01/12/22 11:53 Pulse Oximetry 100 01/12/22 11:53 Temperature 97.7 F 01/12/22 13:47 Pulse Rate 78 01/12/22 13:56 Respiratory Rate 18 01/12/22 13:56 Blood Pressure 130/88 01/12/22 13:56 Pulse Oximetry 98 01/12/22 13:56 MDM - Extremity Injury (Lower) Imaging Data Radiologist's impression: ITS Impressions Foot X-Ray 01/12/22 12
[2022-01-12] MEDS: IBUPROFEN 400 MG TABLET 800 MG PO (13:17)
[2022-01-12 13:47] VITALS: TEMP 36.5
[2022-01-12 13:56] VITALS: BP 130/88; PULSE 78; RESP 18; O2SAT 98
== END 2022-01-12 13:58 | disposition home or self-care (01) ==
PROVIDERS: Emergency Provider General Practice
DX: S90.31XA Contusion of right foot, initial encounter (principal); I50.9 Heart failure, unspecified; I11.0 Hypertensive heart disease with heart failure; E11.9 Type 2 diabetes mellitus without complications; J45.909 Unspecified asthma, uncomplicated; Z85.71 Personal history of Hodgkin lymphoma; Z92.3 Personal history of irradiation; Z92.21 Personal history of antineoplastic chemotherapy; Z95.0 Presence of cardiac pacemaker; Z87.891 Personal history of nicotine dependence; W20.8XXA Other cause of strike by thrown, projected or falling object, initial encounter
CPT/HCPCS: 73630; 99283; A9270

== ENCOUNTER 2022-06-11 07:53 | Outpatient (CLI) | payer MEDICARE, MEDICAID, SELFPAY ==
--- NOTE | 2022-06-11 08:04 | ECHO_ITS ---
Patient Info Name: Atif Temple Age: 46 years : 1975 Gender: Male Ht: 66 in Wt: 165 lbs BSA: 1.88 m2 HR: 52 bpm BP: 128 / 77 mmHg Technical Quality: Good Exam Date: 06/11/2022 9:02 AM Exam Location: [facility] Patient Status: Outpatient Admit Date: 06/11/2022 Staff Ordering Physician: Cornelio Luke DO Cartography Professor: Kimberly Rothman RDCS Attending Provider: Cornelio Luke DO Referring Physician: Tee, Joann Matson MD; Exam Type: CA echo doppler color flow Study Info Indications I50.22 - Chronic systolic (congestive) heart failure Complete two-dimensional, color flow and Doppler transthoracic echocardiogram is performed. Summary 1. Complete two-dimensional, color flow and Doppler transthoracic echocardiogram is performed. 2. Left ventricular chamber dimension is severely enlarged. 3. Left ventricular systolic function is severely reduced, estimated at 30-35%. 4. The left ventricular diastolic function is abnormal. 5. E/e' 16 is elevated. 6. Linear artifact in right ventricle suggestive of catheter(s), pacemaker lead(s), or ICD lead(s). 7. Left atrial chamber dimension is moderately enlarged. 8. Linear artifact in the right atrium suggestive of catheter(s), pacemaker lead(s), or ICD lead(s). 9. There is mild mitral valve regurgitation. 10. There is mild tricuspid valve regurgitation. 11. There is trace pulmonic regurgitation. Left Ventricle E/e' 16 is elevated. Left ventricular chamber dimension is severely enlarged. Left ventricular systolic function is severely reduced, estimated at 30-35%. The left ventricular diastolic function is abnormal. Right Ventricle Linear artifact in right ventricle suggestive of catheter(s), pacemaker lead(s), or ICD lead(s). Right ventricular chamber dimension is normal. Right ventricular systolic function is normal. Left Atria Left atrial chamber dimension is moderately enlarged. Right Atria Linear artifact in the right atrium suggestive of catheter(s), pacemaker lead(s), or ICD lead(s). Right atrial chamber dimension is normal. Aortic Valve The aortic valve is trileaflet. There is no aortic valve stenosis. There is no aortic valve regurgitation. Pulmonic Valve There is trace pulmonic regurgitation. Mitral Valve There is no mitral valve stenosis. There is mild mitral valve regurgitation. Tricuspid Valve There is mild tricuspid valve regurgitation. RVSP is not calculated due to an inadequate TR jet. Pericardium/Pleural There is no pericardial effusion. Inferior Vena Cava Inferior vena cava is not well visualized. Aorta The aortic root size at the sinus of Valsalva is normal. Left Ventricular Outflow Tract Name Value Normal LVOT 2D LVOT Diameter 2.2 cm LVOT Doppler LVOT Peak Gradient 4 mmHg LVOT Mean Gradient 3 mmHg LVOT VTI 18 cm LVOT VTI/AV VTI Ratio 0.7 LVOT Stroke Volume 70 ml LVOT CO 1.9 l/min LVOT CI
== END 2022-06-11 07:54 | disposition home or self-care (01) ==
PROVIDERS: Referring Provider Family Medicine; Visit Provider Internal Medicine Cardiovascular Disease
DX: I50.22 Chronic systolic (congestive) heart failure (principal); I08.3 Combined rheumatic disorders of mitral, aortic and tricuspid valves
CPT/HCPCS: 93306; C8929

== ENCOUNTER 2022-06-26 15:52 | Emergency (ER) | payer MEDICARE, MEDICAID, SELFPAY ==
--- NOTE | ~2022-06-26 | CT_ITS ---
EXAMINATION: CT abdomen pelvis wo con DATE: 06/26/2022 18:21 INDICATION: Left lower quadrant abdominal pain 2 days post accidental antifreeze ingestion. TECHNIQUE: Computed tomography (CT) of the abdomen and pelvis was performed without intravenous contr ast. Automated exposure control and iterative reconstruction technique were employed. The dose-length product was 440.76 mGy-cm. COMPARISON: None FINDINGS: Lung bases are clear. No pleural effusion. Heart size is normal. Atherosclerotic coronary artery calc ific lesion. Cardiac pacemaker lead tip near the apex of the right ventricle. Small pericardial effus ion. Cholecystectomy clips at the gallbladder fossa. Liver, spleen, pancreas and right kidney are nor mal. 1.2 cm left renal cyst. Bilateral low-attenuation adrenal adenomas, the largest on the right rossi suring 2.1 x 1.4 cm. There are few scattered diverticula with focal wall thickening and prominent shane rounding inflammatory stranding at a diverticulum at the junction of the descending and sigmoid colon consistent with diverticulitis. No abscess or free intraperitoneal gas or fluid. Remainder of the nick wels are unremarkable with no obstruction. Bladder is normal. No pathologically enlarged abdominal or pelvic lymphadenopathy. There are bridging osteophytes at multiple levels in the lower thoracic spin e, consistent with diffuse idiopathic skeletal hyperostosis (DISH). IMPRESSION: 1. Radiographically uncomplicated diverticulitis at the junction of the sigmoid and descending colon. 2. Small pericardial effusion. Reviewed, dictated and finalized at location A.
[2022-06-26 16:04] VITALS: BP 120/60; PULSE 56; RESP 16; TEMP 36.5; O2SAT 99
[2022-06-26 16:28] LABS: Basophils Absolute Auto 0.1 K/mm3 (0.0-0.1); Basophils Percent Auto 0.5 % (0.2-1.2); Eosinophils Absolute Auto 0.3 K/mm3 (0-0.3); Eosinophils Percent Auto 2.1 % (0-4.4); Hemoglobin 14.1 g/dL (14.0-18.0); Immature Granulocyte Absolute 0.04 K/mm3 (0.00-0.031); Immature Granulocyte Percent A 0.3 % (0-0.5); Lymphocytes Absolute Auto 1.98 K/mm3 (0.9-3.2); Lymphocytes Percent Auto 15.7 % (18.3-44.2); Mean Corpuscular HGB Conc 33.6 g/dl (32-36); Mean Corpuscular Volume 89.4 fl (80-100); Mean Platelet Volume 12.4 fl (7.4-10.4); Monocytes Absolute Auto 1.4 K/mm3 (0.1-0.6); Monocytes Percent Auto 11.2 % (2.6-8.5); Neutrophils Absolute Auto 8.9 K/mm3 (1.3-6.7); Neutrophils Percent Auto 70.2 % (45.5-73.1); Platelet Count Result 133 k/mm3 (150-375); Red Cell Distribution Width 13.1 % (11.5-14.5); White Blood Count 12.6 K/mm3 (4.5-10.0)
[2022-06-26 16:33] LABS: Alanine Aminotransferase 17 U/L (6-50); Albumin Level 4.8 g/dL (3.5-5.1); Alkaline Phosphatase 24 U/L (38-126); Anion Gap 13 mmol/L (8-16); Aspartate Amino Transferase 18 U/L (17-59); Blood Urea Nitrogen 12 mg/dL (9-20); Calcium 9.9 mg/dL (8.4-10.2); Carbon Dioxide 25 mmol/L (22-30); Chloride 99 mmol/L (98-107); Estimated CRCL calculation 66 ml/min; Estimated Glomerular Filt Rate > 60; Glucose 148 mg/dL (65-110); Lipase 172 U/L (23-300); Potassium 4.1 mmol/L (3.4-5.0); Sodium 137 mmol/L (137-145)
[2022-06-26 17:07] LABS: Appearance Urine Clear (Clear); Bilirubin Urine Negative (Negative); Blood Urine Negative (Negative); Color Urine Yellow (Yellow); Glucose Urine UA Negative (Negative); Ketones Urine Negative (Negative); Leukocyte Esterase Ur Negative LEU/UL (Negative); Nitrate Urine Negative (Negative); Protein Urine Negative (Negative); Urobilinogen Urine 0.2 mg/dL (<2.0)
[2022-06-26 17:08] LABS: Add Urine Microscopic? NO
--- NOTE | 2022-06-26 17:32 | PC.NURSE ---
Poison Control cleared patient at this time, determined that vomiting and nausea should have had 1-4 hour onset and that patient's symptoms at this time have no connection with accidental ingestion two nights ago.
--- NOTE | 2022-06-26 18:00 | ED.ABDPAIN ---
HPI - Abdominal Pain General Chief Complaint: Abdominal Pain Stated Complaint: ingested antifreeze yesterday, now sob/abd pain Time Seen by Provider: 06/26/22 17:00 History of Present Illness HPI narrative: 46-year-old male presents to the emergency room for evaluation of abdominal pain for 2 days. Patient is complaining of left lower quadrant pain that radiates across the lower abdomen. Is associated with constipation. Denies nausea vomiting or diarrhea. Patient states he had a colonoscopy last year and was told that he has several diverticula. Denies fever. Denies flank pain. Patient also reports after the abdominal pain started he accidentally ingested a small amount of antifreeze. Related Data Home Medications Medication Instructions Recorded Confirmed atorvastatin 10 mg tablet 10 mg PO DAILY 12/09/20 01/23/22 Allergies Allergy/AdvReac Type Severity Reaction Status Date / Time No Known Allergies Allergy Verified 06/26/22 16:06 Review of Systems Review of Systems: CONSTITUTIONAL: Denies fever, chills, or sweats. EYES: Denies visual changes, redness, or discharge. ENT: Denies rhinorrhea, congestion, sore throat, or otalgia. CARDIOVASCULAR: Denies chest pain, palpitations, or edema. RESPIRATORY: Denies cough or dyspnea. GASTROINTESTINAL: Reports abdominal pain, constipation GENITOURINARY: Denies dysuria or hematuria. SKIN: Denies rash or itching. MUSCULOSKELETAL: Denies back pain, joint pain, or myalgia. NEUROLOGIC: Denies headache, numbness, dizziness, or weakness. PSYCHIATRIC: Denies anxiety or depression. [facility] Past Medical History Medical History Anxiety Asthma Cardiomyopathy CHF (congestive heart failure) Diabetes Heart disease History of chemotherapy History of radiation therapy Hodgkin lymphoma HTN (hypertension) Pacemaker Surgical History Surgical History History of appendectomy History of cardiac defibrillator placement History of cholecystectomy History of removal of Port-a-Cath History of surgery Lymph node resection's Family History Family History Mother Diabetes mellitus Family history of cardiovascular disease Hypertension Family history of diabetes mellitus in first degree relative Father Family history of cardiovascular disease Family history of malignant neoplasm Family history of heart disease in male family member before age 55 Grandparent Hypertension Heart problem Cerebrovascular accident Other Family history of lung disease Social History Social History Smoking packs per day: 1 Smoking cigarettes per day: 20.0 Years smoked: 25 Smoking pack-years: 25.00 Smoking status: Former smoker Tobacco type: cigarettes Second hand tobacco smoke exposure: Yes Smoking end date: 11/22/20 Alcohol intake: current Alcohol use details: Social Substance use: never Substance use type: does not use Gender identity (if verbalized by the patient): Male Exam Narrative: GENERAL: Well-appearing, well-nourished, no physical limitations, and in no acute distress. HEAD: Normocephalic, atraumatic. EYES: Conjunctivae normal, PERRLA and EOMI. CHEST: Clear to auscultation. No respiratory distress. No wheezes rales or rhonchi. No tenderness. HEART: Regular rate and rhythm. No murmur heard. Normal peripheral pulses. ABDOMEN: Soft, lower quadrant tenderness,, nondistended, normal active bowel sounds. BACK: No CVA tenderness EXTREMITIES: Normal range of motion. No edema. No clubbing or cyanosis SKIN: Warm, dry, no rash. No noted wounds NEURO: No focal deficits. Alert and oriented x3. MAEW. CN's II-XI intact bilaterally, normal gait PSYCH: Cooperative. Normal mood and affect. Course Vital Signs Vital signs: Vital Signs Temperature
== END 2022-06-26 19:36 | disposition home or self-care (01) ==
PROVIDERS: Emergency Medicine; Emergency Provider Nurse Practitioner Family; PCP Family Medicine
DX: K57.92 Diverticulitis of intestine, part unspecified, without perforation or abscess without bleeding (principal); J45.909 Unspecified asthma, uncomplicated; I50.9 Heart failure, unspecified; I11.0 Hypertensive heart disease with heart failure; E11.9 Type 2 diabetes mellitus without complications; Z85.71 Personal history of Hodgkin lymphoma; Z92.21 Personal history of antineoplastic chemotherapy; Z92.3 Personal history of irradiation; Z95.0 Presence of cardiac pacemaker; Z87.891 Personal history of nicotine dependence
CPT/HCPCS: 36415; 74176; 80053; 81003; 83690; 85025; 99284

== ENCOUNTER 2022-10-25 12:12 | Emergency (ER) | payer MEDICARE, MEDICAID, SELFPAY ==
[2022-10-25 12:26] VITALS: BP 139/89; PULSE 82; RESP 18; TEMP 36.7; O2SAT 100
[2022-10-25 12:30] LABS: Appearance Urine Clear (Clear); Bilirubin Urine Negative (Negative); Blood Urine Negative (Negative); Color Urine Yellow (Yellow); Glucose Urine UA Negative (Negative); Ketones Urine Negative (Negative); Leukocyte Esterase Ur Negative LEU/UL (Negative); Nitrate Urine Negative (Negative); Protein Urine Negative (Negative); Specific Grav Ur 1.015 (1.001-1.035); Urobilinogen Urine 0.2 mg/dL (<2.0); pH Urine 5.5 (5.0-9.0)
[2022-10-25 12:36] LABS: Add Urine Microscopic? NO
[2022-10-25] MEDS: SODIUM CHLORIDE 0.9% IV 1,000 ML 999 ML IV CONT (12:39)
[2022-10-25 12:46] LABS: Basophils Percent Auto 0.8 % (0.2-1.2); Eosinophils Absolute Auto 0.2 K/mm3 (0-0.3); Eosinophils Percent Auto 4.5 % (0-4.4); Hemoglobin 13.9 g/dL (14.0-18.0); Immature Granulocyte Absolute 0.01 K/mm3 (0.00-0.031); Immature Granulocyte Percent A 0.3 % (0-0.5); Immature Platelet Fraction Pct 15.8 % (0.9-11.2); Lymphocytes Absolute Auto 1.12 K/mm3 (0.9-3.2); Lymphocytes Percent Auto 28.2 % (18.3-44.2); Mean Corpuscular HGB Conc 33.9 g/dl (32-36); Mean Corpuscular Volume 91.3 fl (80-100); Mean Platelet Volume 12.3 fl (7.4-10.4); Monocytes Absolute Auto 0.7 K/mm3 (0.1-0.6); Monocytes Percent Auto 16.9 % (2.6-8.5); Neutrophils Percent Auto 49.3 % (45.5-73.1); Platelet Count Result 91 k/mm3 (150-375); Red Blood Count 4.49 M/mm3 (4.6-6.20); Red Cell Distribution Width 13.2 % (11.5-14.5)
--- NOTE | 2022-10-25 12:52 | ED.BACK ---
HPI - Back Pain/Injury General Chief Complaint: Back Pain/Injury Stated Complaint: bilat flank pain Time Seen by Provider: 10/25/22 12:21 History of Present Illness HPI Narrative: 46-year-old male presented to the emergency department for evaluation of foul-smelling urine and flank pain. Patient states over the last few days he has had the symptoms. Patient states he does have history of congestive heart failure and does have an ICD in place. Patient denies any associated chest pain or shortness of breath. Patient denies any prior history of kidney stones. Related Data Home Medications Medication Instructions Recorded Confirmed atorvastatin 10 mg tablet 10 mg PO DAILY 12/09/20 07/24/22 Allergies Allergy/AdvReac Type Severity Reaction Status Date / Time No Known Allergies Allergy Verified 10/25/22 12:28 Review of Systems Review of Systems: CONSTITUTIONAL: Denies fever, chills, or sweats. EYES: Denies visual changes, redness, or discharge. ENT: Denies rhinorrhea, congestion, sore throat, or otalgia. CARDIOVASCULAR: Denies chest pain, palpitations, or edema. RESPIRATORY: Denies cough or dyspnea. GASTROINTESTINAL: Denies abdominal pain, nausea, vomiting, or diarrhea. GENITOURINARY: Flank pain and dark smelly urine. SKIN: Denies rash or itching. MUSCULOSKELETAL: Denies back pain, joint pain, or myalgia. NEUROLOGIC: Denies headache, numbness, or weakness. PSYCHIATRIC: Denies anxiety or depression. [facility] Past Medical History Medical History Anxiety Asthma Cardiomyopathy CHF (congestive heart failure) Diabetes Heart disease History of chemotherapy History of radiation therapy Hodgkin lymphoma HTN (hypertension) Pacemaker Surgical History Surgical History History of appendectomy History of cardiac defibrillator placement History of cholecystectomy History of removal of Port-a-Cath History of surgery Lymph node resection's Family History Family History Mother Diabetes mellitus Family history of cardiovascular disease Hypertension Family history of diabetes mellitus in first degree relative Father Family history of cardiovascular disease Family history of malignant neoplasm Family history of heart disease in male family member before age 55 Grandparent Hypertension Heart problem Cerebrovascular accident Other Family history of lung disease Social History Social History Smoking packs per day: 1 Smoking cigarettes per day: 20.0 Years smoked: 25 Smoking pack-years: 25.00 Smoking status: Former smoker Tobacco type: cigarettes Second hand tobacco smoke exposure: Yes Smoking end date: 11/22/20 Alcohol intake: current Alcohol use details: Social Substance use: never Substance use type: does not use Gender identity (if verbalized by the patient): Male Exam Narrative: APPEARANCE: Well appearing, no pain, no distress, well-nourished. HEAD: normocephalic, atraumatic. EYES: PERRLA/EOMI, conjunctivae clear. NOSE: Normal no drainage EARS:TMS clear with good light reflex. RESPIRATORY: Airway patent, respirations nonlabored. Clear to auscultation bilaterally, no rales, rhonchi, wheezing. CARDIOVASCULAR: Regular rate and rhythm without murmurs rubs or gallops. ABDOMINAL: Soft, mild right-sided flank tenderness to palpation. No abdominal tenderness to palpation. Nondistended, normal bowel sounds. MUSCULOSKELETAL: Moves all extremities. Strength/ROM intact, No edema, No calf tenderness. NEURO: Alert. Cranial nerves II through XII intact. SKIN: Warm, dry. Normal Color Course Course Emergency Course: Patient is afebrile. Patient does have a white count of 4.0. Patient's electrolytes are within normal limits. Patient has no NAOMI. Patient has no evidence o
[2022-10-25 12:55] LABS: Alanine Aminotransferase 30 U/L (6-50); Albumin Level 4.4 g/dL (3.5-5.1); Alkaline Phosphatase 31 U/L (38-126); Anion Gap 6 mmol/L (8-16); Aspartate Amino Transferase 26 U/L (17-59); Bilirubin,Total 0.3 mg/dL (0.2-1.3); Blood Urea Nitrogen 10 mg/dL (9-20); Calcium 8.5 mg/dL (8.4-10.2); Carbon Dioxide 26 mmol/L (22-30); Chloride 106 mmol/L (98-107); Estimated CRCL calculation 72 ml/min; Estimated Glomerular Filt Rate > 60; Glucose 157 mg/dL (65-110); Sodium 138 mmol/L (137-145)
[2022-10-25 13:21] LABS: Influenza A QL RT-PCR Negative (Negative); Influenza B QL RT-PCR Negative (Negative); SARS-CoV-2 RNA PCR Positive
== END 2022-10-25 14:36 | disposition home or self-care (01) ==
PROVIDERS: Emergency Medicine; Emergency Provider Emergency Medicine; PCP Family Medicine
DX: U07.1 COVID-19 (principal); J45.909 Unspecified asthma, uncomplicated; I42.9 Cardiomyopathy, unspecified; I50.9 Heart failure, unspecified; I11.0 Hypertensive heart disease with heart failure; E11.9 Type 2 diabetes mellitus without complications; Z95.810 Presence of automatic (implantable) cardiac defibrillator; Z85.71 Personal history of Hodgkin lymphoma; Z92.21 Personal history of antineoplastic chemotherapy; Z92.3 Personal history of irradiation; Z87.891 Personal history of nicotine dependence
CPT/HCPCS: 36415; 80053; 81003; 85025; 85055; 87636; 96360; 99283; J7030

== ENCOUNTER 2023-02-18 08:19 | Outpatient (CLI) | payer MEDICARE, MEDICAID, SELFPAY ==
--- NOTE | 2023-02-18 08:52 | ECHO_ITS ---
Patient Info Name: Atif Temple Age: 47 years : 1975 Gender: Male Ht: 66 in Wt: 170 lbs BSA: 1.91 m2 HR: 57 bpm BP: 124 / 77 mmHg Technical Quality: Fair Exam Date: 02/18/2023 9:06 AM Exam Location: [facility] Patient Status: Outpatient Admit Date: 02/18/2023 Staff Ordering Physician: Cornelio Luke DO [employer] Specialist: Marianne Melvin RDCS Attending Provider: Cornelio Luke DO Referring Physician: Ti GARCIA; Exam Type: CA echo dopper with color flow echocardiogram Study Info Indications - ppm I50.20 - Unspecified systolic (congestive) heart failure Complete two-dimensional, color flow and Doppler transthoracic echocardiogram is performed. Summary 1. Complete two-dimensional, color flow and Doppler transthoracic echocardiogram is performed. 2. Left ventricular chamber dimension is severely enlarged. 3. Left ventricular systolic function is severely reduced, estimated at 25-30%. 4. The left ventricular diastolic function is grade I diastolic dysfunction. 5. E/e' 14 is mildly elevated. 6. Global longitudinal strain is abnormal at -8.4%. 7. Linear artifact in right ventricle suggestive of catheter(s), pacemaker lead(s), or ICD lead(s). 8. Linear artifact in the right atrium suggestive of catheter(s), pacemaker lead(s), or ICD lead(s). 9. There is trace mitral valve regurgitation. 10. There is trace tricuspid valve regurgitation. 11. No pulmonary hypertension, estimated pulmonary arterial systolic pressure is 24 mmHg. 12. There is trace pulmonic regurgitation. Left Ventricle E/e' 14 is mildly elevated. Global longitudinal strain is abnormal at -8.4%. Left ventricular chamber dimension is severely enlarged. Left ventricular systolic function is severely reduced, estimated at 25-30%. The left ventricular diastolic function is grade I diastolic dysfunction. Right Ventricle Right ventricular systolic function is normal and with normal TAPSE 2.1 cm. Linear artifact in right ventricle suggestive of catheter(s), pacemaker lead(s), or ICD lead(s). Right ventricular chamber dimension is normal. Left Atria Left atrial chamber dimension is normal. Right Atria Linear artifact in the right atrium suggestive of catheter(s), pacemaker lead(s), or ICD lead(s). Right atrial chamber dimension is normal. Aortic Valve The aortic valve is trileaflet. There is no aortic valve stenosis. There is no aortic valve regurgitation. Pulmonic Valve There is trace pulmonic regurgitation. Mitral Valve There is no mitral valve stenosis. There is trace mitral valve regurgitation. Tricuspid Valve There is trace tricuspid valve regurgitation. No pulmonary hypertension, estimated pulmonary arterial systolic pressure is 24 mmHg. Pericardium/Pleural There is no pericardial effusion. Inferior Vena Cava Normal inferior vena cava with >50% collapse upon inspiration consistent with normal right atrial pressure, 5 mmHg. Aorta The aortic root size at the sinus of Valsalva is normal. Left Ventricular Outflow Tract Name Value Normal LVOT 2D LVOT Diameter 2.17 cm LVOT Doppler LVOT Peak Gradient
== END 2023-02-18 08:20 | disposition home or self-care (01) ==
LOC: ANHCARD 08:20
PROVIDERS: PCP Family Medicine; Visit Provider Internal Medicine Cardiovascular Disease
DX: I50.22 Chronic systolic (congestive) heart failure (principal)
CPT/HCPCS: 93306; C8929

== ENCOUNTER 2023-05-06 15:12 | Emergency (ER) | payer MEDICARE, MEDICAID, SELFPAY ==
[2023-05-06 15:32] VITALS: BP 139/74; PULSE 76; RESP 18; TEMP 36.4; O2SAT 98
== END 2023-05-06 18:31 | disposition left against medical advice (07) ==
LOC: ANHED 18:41
PROVIDERS: PCP Family Medicine
DX: R51.9 Headache, unspecified (principal)
CPT/HCPCS: 99199

== ENCOUNTER 2023-06-13 10:33 | Emergency (ER) | payer MEDICARE, MEDICAID, SELFPAY ==
[2023-06-13] VITALS (11 sets, daily range): BP systolic 118–147; BP diastolic 78–92; PULSE 67–72; RESP 16; TEMP 36.9; O2SAT 97–100
--- NOTE | ~2023-06-13 | CT_ITS ---
EXAMINATION: CT abdomen pelvis w con DATE: 06/13/2023 11:44 INDICATION: Right lower quadrant pain TECHNIQUE: Computed tomography (CT) of the abdomen and pelvis was performed with 100 cc Omnipaque 350 intravenous contrast. The dose-length product was 603.01 mGy-cm. Automated exposure control and iter ative reconstruction technique were employed. COMPARISON: 06/26/2022. FINDINGS: Lung bases are unremarkable. Heart size normal. No significant pleural effusion. Small mac cardial effusion. Small bilateral adrenal nodules which are low density, largest measuring 1.9 cm in the right adrenal gland, most likely benign adenomas. Fatty infiltration of the liver. There is faustino cystectomy changes. The spleen, pancreas, and right kidney are unremarkable. There are left renal cys ts. Nonobstructive bowel gas pattern. Colonic diverticulosis without evidence for diverticulitis. No free air or free fluid. No abnormal pelvic masses or fluid collections. No significant vascular abnor mality. No lymphadenopathy. Mild lumbar spondylosis. IMPRESSION: 1. No acute abdominal abnormality. 2: Small chronic pericardial effusion. Reviewed, dictated and finalized at location A.
[2023-06-13 11:00] LABS: Basophils Absolute Auto 0.1 K/mm3 (0.0-0.1); Basophils Percent Auto 1.2 % (0.2-1.2); Eosinophils Absolute Auto 0.5 K/mm3 (0-0.3); Eosinophils Percent Auto 6.8 % (0-4.4); Hemoglobin 13.1 g/dL (14.0-18.0); Immature Granulocyte Absolute 0.02 K/mm3 (0.00-0.031); Immature Granulocyte Percent A 0.3 % (0-0.5); Lymphocytes Absolute Auto 2.57 K/mm3 (0.9-3.2); Lymphocytes Percent Auto 35.6 % (18.3-44.2); Mean Corpuscular HGB Conc 33.6 g/dl (32-36); Mean Corpuscular Hemoglobin 30.3 pg (26-34); Mean Corpuscular Volume 90.1 fl (80-100); Mean Platelet Volume 12.7 fl (7.4-10.4); Monocytes Absolute Auto 0.7 K/mm3 (0.1-0.6); Monocytes Percent Auto 9.8 % (2.6-8.5); Neutrophils Absolute Auto 3.3 K/mm3 (1.3-6.7); Neutrophils Percent Auto 46.3 % (45.5-73.1); Platelet Count Result 111 k/mm3 (150-375); Red Blood Count 4.33 M/mm3 (4.6-6.20); Red Cell Distribution Width 12.5 % (11.5-14.5); White Blood Count 7.2 K/mm3 (4.5-10.0)
[2023-06-13 11:11] LABS: Appearance Urine Clear (Clear); Bilirubin Urine Negative (Negative); Blood Urine Negative (Negative); Color Urine Yellow (Yellow); Glucose Urine UA Negative (Negative); Ketones Urine Negative (Negative); Leukocyte Esterase Ur Negative LEU/UL (Negative); Nitrate Urine Negative (Negative); Protein Urine Negative (Negative); Specific Grav Ur 1.004 (1.001-1.035); Urobilinogen Urine 0.2 mg/dL (<2.0); pH Urine 5.5 (5.0-9.0)
[2023-06-13 11:14] LABS: Alanine Aminotransferase 31 U/L (6-50); Albumin Level 4.4 g/dL (3.5-5.1); Alkaline Phosphatase 43 U/L (38-126); Anion Gap 12 mmol/L (8-16); Aspartate Amino Transferase 24 U/L (17-59); Bilirubin,Total 0.4 mg/dL (0.2-1.3); Blood Urea Nitrogen 15 mg/dL (9-20); Calcium 9.5 mg/dL (8.4-10.2); Carbon Dioxide 23 mmol/L (22-30); Chloride 103 mmol/L (98-107); Estimated CRCL calculation 71 ml/min; Estimated Glomerular Filt Rate > 60; Glucose 154 mg/dL (65-110); Lipase 82 U/L (23-300); Potassium 4.2 mmol/L (3.4-5.0); Sodium 138 mmol/L (137-145)
[2023-06-13 11:29] LABS: Add Urine Microscopic? NO
--- NOTE | 2023-06-13 11:31 | ED.ABDPAIN ---
HPI - Abdominal Pain General Chief Complaint: Abdominal Pain Stated Complaint: diverticulitis acting up Time Seen by Provider: 06/13/23 10:49 History of Present Illness HPI narrative: 47-year-old male with history of diverticulitis presented to the emergency department for evaluation of flank pain and right lower quadrant pain. Patient does report associated nausea. Related Data Allergies Allergy/AdvReac Type Severity Reaction Status Date / Time No Known Allergies Allergy Verified 06/13/23 10:33 Review of Systems Review of Systems: All systems reviewed & are unremarkable except as noted in HPI and below PMFSH Past Medical History Medical History Anxiety Asthma Cardiomyopathy CHF (congestive heart failure) Diabetes Heart disease History of chemotherapy History of radiation therapy Hodgkin lymphoma HTN (hypertension) Pacemaker Surgical History Surgical History History of appendectomy History of cardiac defibrillator placement History of cholecystectomy History of removal of Port-a-Cath History of surgery Lymph node resection's Family History Family History Mother Diabetes mellitus Family history of cardiovascular disease Hypertension Family history of diabetes mellitus in first degree relative Father Family history of cardiovascular disease Family history of malignant neoplasm Family history of heart disease in male family member before age 55 Grandparent Hypertension Heart problem Cerebrovascular accident Other Family history of lung disease Social History Social History Smoking packs per day: 1 Smoking cigarettes per day: 20.0 Years smoked: 25 Smoking pack-years: 25.00 Smoking status: Former smoker Tobacco type: cigarettes Second hand tobacco smoke exposure: Yes Smoking end date: 11/22/20 Alcohol intake: current Alcohol use details: Social Substance use: never Substance use type: does not use Lack of Transportation: No Lack of Food: Never True Current Housing: I Have Housing Concerned About Future Housing: No Difficulty Paying Gas/Electric Bills: No Difficulty Paying for Meds: YES Currently Unemployed: Decline to Answer Education: Decline to Answer Difficulty w/ Childcare or Family Care: No Living arrangements: with family Occupation/Education: retired Gender identity (if verbalized by the patient): Male Exam Narrative: APPEARANCE: Well appearing, no pain, no distress, well-nourished. HEAD: normocephalic, atraumatic. EYES: PERRLA/EOMI, conjunctivae clear. NOSE: Normal no drainage NECK: Supple. No adenopathy, no masses. RESPIRATORY: Airway patent, respirations nonlabored. Clear to auscultation bilaterally, no rales, rhonchi, wheezing. CARDIOVASCULAR: Regular rate and rhythm without murmurs rubs or gallops. ABDOMINAL: Right lower quadrant pain MUSCULOSKELETAL: Moves all extremities. Strength/ROM intact, No edema, No calf tenderness. NEURO: Alert. Cranial nerves II through XII intact. SKIN: Warm, dry. Normal Color Course Course Emergency Course: 47-year-old male present emerged department for evaluation of low back pain. Patient did have some right lower quadrant tenderness to palpation. Patient was afebrile with no leukocytosis. Patient has no significant abnormalities on his CMP and UA shows no evidence of infection no hematuria. CT scan showed no spinous for the patient's symptoms. Patient was updated on the results of the work-up and was encouraged to take Tylenol and ibuprofen for pain control have close follow-up with his primary care physician. Patient was also educated on reasons to return to the emergency department. All question concerns were addressed patient was well-appearing at time of
[2023-06-13] MEDS: SODIUM CHLORIDE 0.9% IV 1,000 ML 999 ML IV CONT (11:56)
== END 2023-06-13 12:27 | disposition home or self-care (01) ==
PROVIDERS: Emergency Provider Emergency Medicine; PCP Family Medicine
DX: R10.31 Right lower quadrant pain (principal); M54.50 Low back pain, unspecified; I42.9 Cardiomyopathy, unspecified; I50.9 Heart failure, unspecified; I11.0 Hypertensive heart disease with heart failure; E11.9 Type 2 diabetes mellitus without complications; J45.909 Unspecified asthma, uncomplicated; Z95.810 Presence of automatic (implantable) cardiac defibrillator; Z85.71 Personal history of Hodgkin lymphoma; Z92.3 Personal history of irradiation; Z92.21 Personal history of antineoplastic chemotherapy; Z87.891 Personal history of nicotine dependence; Z90.49 Acquired absence of other specified parts of digestive tract
CPT/HCPCS: 36415; 74177; 80053; 81003; 83690; 85025; 99284; J7030; Q9967

== ENCOUNTER 2023-09-15 08:04 | Outpatient (CLI) | payer MEDICARE, MEDICAID, SELFPAY ==
--- NOTE | 2023-09-15 08:28 | ECHO_ITS ---
Patient Info Name: Atif Temple Age: 47 years : 1975 Gender: Male Ht: 66 in Wt: 162 lbs BSA: 1.86 m2 HR: 78 bpm BP: 131 / 88 mmHg Technical Quality: Fair Exam Date: 09/15/2023 8:48 AM Exam Location: [facility] Patient Status: Outpatient Admit Date: 09/15/2023 Staff Ordering Physician: Cornelio Luke DO [employer] Worker: Marianne Melvin RDCS Attending Provider: Cornelio Luke DO Referring Physician: Ti GARCIA; Exam Type: CA echo dop color flow w con Study Info Indications I50.22 - Chronic systolic (congestive) heart failure Complete two-dimensional, color flow and Doppler transthoracic echocardiogram is performed with contrast to opacify the left ventricle and to improve the deliniation of the left ventricle endocardial borders. Contrast/Agitated Saline Contrast/Ag. Saline: Definity Amount: 2.00 ml Administered By: Marianne Melvin [facility] IV Access: Antecubital Space and Left Site Condition: IV removed Summary 1. Definity contrast administered improved wall motion interpretation. 2. Left ventricular chamber dimension is severely enlarged. 3. Left ventricular systolic function is severely reduced, estimated at 15-20%. 4. The left ventricular diastolic function is grade I diastolic dysfunction. 5. E/e' 21 is elevated. 6. Linear artifact in right ventricle suggestive of catheter(s), pacemaker lead(s), or ICD lead(s). 7. Left atrial chamber dimension is mildly enlarged. 8. Linear artifact in the right atrium suggestive of catheter(s), pacemaker lead(s), or ICD lead(s). 9. There is mild to moderate mitral valve regurgitation noted with definity. 10. There is mild to moderate tricuspid valve regurgitation noted with definity. 11. No pulmonary hypertension, estimated pulmonary arterial systolic pressure is 31 mmHg. 12. There is trivial pericardial effusion. Left Ventricle E/e' 21 is elevated. Definity contrast administered improved wall motion interpretation. Left ventricular chamber dimension is severely enlarged. Left ventricular systolic function is severely reduced, estimated at 15-20%. The left ventricular diastolic function is grade I diastolic dysfunction. Right Ventricle Linear artifact in right ventricle suggestive of catheter(s), pacemaker lead(s), or ICD lead(s). Right ventricular chamber dimension is normal. Right ventricular systolic function is normal. Left Atria Left atrial chamber dimension is mildly enlarged. Right Atria Linear artifact in the right atrium suggestive of catheter(s), pacemaker lead(s), or ICD lead(s). Right atrial chamber dimension is normal. Aortic Valve The aortic valve is trileaflet. There is no aortic valve stenosis. There is no aortic valve regurgitation. Pulmonic Valve There is no pulmonic regurgitation. Mitral Valve There is no mitral valve stenosis. There is mild to moderate mitral valve regurgitation noted with definity. Tricuspid Valve There is mild to moderate tricuspid valve regurgitation noted with definity. No pulmonary hypertension, estimated pulmonary arterial systolic pressure is 31 mmHg. Pericardium/Pleural There is trivial pericardial effusion. Inferior Vena Cava Normal inferior vena cava with >50% collapse upon inspiration consistent with normal right atrial pressure, 5 mmHg. Aorta The aortic root size at the sinus of Valsalva is normal. Left Ventricular Outflow Tract Name Value Normal
[2023-09-15] MEDS: PERFLUTREN LIPID MICROSPHERES 1.5 ML VIAL DILUTED TO 10 ML TOTAL VOLUME IV PUSH (09:30)
--- NOTE | 2023-09-20 11:33 | IVDEFINITY ---
Prior to administration of IV Definity the patient was educated on the risks and benefits of the imaging enhancing agent including potential adverse side effects. The patient verbalized understanding. Allergies were verified. No exclusion criteria were identified and at least one of the following inclusion criteria were met: 1) physician request, 2) patient technically difficult to image (per the [place] [employer] guidelines of two or more segments not discernable within the apical view), or 3) questionable left ventricular function. ?
== END 2023-09-15 08:05 | disposition home or self-care (01) ==
LOC: ANHCARD 08:04
PROVIDERS: PCP Family Medicine; Visit Provider Internal Medicine Cardiovascular Disease
DX: I50.22 Chronic systolic (congestive) heart failure (principal); I34.0 Nonrheumatic mitral (valve) insufficiency; I36.1 Nonrheumatic tricuspid (valve) insufficiency
CPT/HCPCS: C8929; Q9957

== ENCOUNTER 2024-01-19 22:24 | Emergency (ER) | payer MEDICARE, MEDICAID, SELFPAY ==
[2024-01-19 22:37] VITALS: BP 139/98; PULSE 99; RESP 16; TEMP 36.3; O2SAT 98
--- NOTE | 2024-01-19 23:06 | PC.NURSE ---
Pt states is feeling much better and wants to go home. Axox4 and ambulatory. Encouraged to stay/come back if needed.
== END 2024-01-19 23:28 | disposition left against medical advice (07) ==
LOC: ANHED 23:21
PROVIDERS: PCP Family Medicine
DX: R11.0 Nausea (principal)
CPT/HCPCS: 99199

== ENCOUNTER 2024-10-24 07:46 | Outpatient (CLI) | payer MEDICARE, MEDICAID, SELFPAY ==
--- NOTE | 2024-10-24 08:05 | ECHO_ITS ---
Patient Info Name: Atif Temple Age: 48 years : 1975 Gender: Male Ht: 66 in Wt: 164 lbs BSA: 1.88 m2 HR: 61 bpm BP: 112 / 78 mmHg Technical Quality: Fair Exam Date: 10/24/2024 8:16 AM Exam Location: Echo Lab Patient Status: Outpatient Admit Date: 10/24/2024 Staff Ordering Physician: Cornelio Luke DO Cost Accountant: Jannet Arias RDCS Attending Provider: Cornelio Luke DO Referring Physician: Ti GARCIA; Exam Type: CA echo dop color flow w con Study Info Indications I50.22 - Chronic systolic (congestive) heart failure Complete two-dimensional, color flow and Doppler transthoracic echocardiogram is performed with contrast to opacify the left ventricle and to improve the deliniation of the left ventricle endocardial borders. Contrast/Agitated Saline Contrast/Ag. Saline: Definity Amount: 2.00 ml Administered By: Jannet Arias RDCS New IV Access: Antecubital Space and Left Site Condition: No extravasation, Site dressing applied and IV removed Summary 1. Definity contrast administered improved wall motion interpretation. 2. Left ventricular systolic function is severely globally reduced, estimated at 30-35%. 3. Left ventricular chamber dimension is severely enlarged. 4. The left ventricular diastolic function is grade I diastolic dysfunction. 5. E/e' 14 is mildly elevated. 6. Global longitudinal strain is abnormal at -8.2%. 7. Linear artifact in right ventricle suggestive of catheter(s), pacemaker lead(s), or ICD lead(s). 8. Linear artifact in the right atrium suggestive of catheter(s), pacemaker lead(s), or ICD lead(s). 9. There is trace mitral valve regurgitation. 10. There is mild tricuspid valve regurgitation. 11. No pulmonary hypertension, estimated pulmonary arterial systolic pressure is 26 mmHg. 12. There is trace pulmonic regurgitation. Left Ventricle E/e' 14 is mildly elevated. Definity contrast administered improved wall motion interpretation. Global longitudinal strain is abnormal at -8.2%. Left ventricular systolic function is severely globally reduced, estimated at 30-35%. Left ventricular chamber dimension is severely enlarged. The left ventricular diastolic function is grade I diastolic dysfunction. Right Ventricle Linear artifact in right ventricle suggestive of catheter(s), pacemaker lead(s), or ICD lead(s). Right ventricular chamber dimension is normal. Right ventricular systolic function is normal. Left Atria Left atrial chamber dimension is normal. Right Atria Linear artifact in the right atrium suggestive of catheter(s), pacemaker lead(s), or ICD lead(s). Right atrial chamber dimension is normal. Aortic Valve The aortic valve is trileaflet. There is no aortic valve stenosis. There is no aortic valve regurgitation. Pulmonic Valve There is trace pulmonic regurgitation. Mitral Valve There is no mitral valve stenosis. There is trace mitral valve regurgitation. Tricuspid Valve There is mild tricuspid valve regurgitation. No pulmonary hypertension, estimated pulmonary arterial systolic pressure is 26 mmHg. Pericardium/Pleural There is no pericardial effusion. Inferior Vena Cava Normal inferior vena cava with >50% collapse upon inspiration consistent with normal right atrial pressure, 5 mmHg. Aorta The aortic root size at the sinus of Valsalva is normal. Left Ventricular Outflow Tract Name Value Normal LVOT 2D LVOT Diameter 1.92 cm LVOT Doppler LVOT Peak Gradient 7 mmHg LVOT Mean Gradient 3 mmHg LVOT VTI 22.89 cm LVOT VTI/AV VTI Ratio 1.04 LVOT Stroke Volume 65.97 ml LVOT CO 3.65 l/min LVOT CI 1.95 L/min/m2 Pulmonic Valve Name Value Normal RVOT Doppler RVOT Peak Gradient 2 mmHg PV Doppler PV Peak Gradient 4 mmHg Mitral Valve Name Value Normal MV Doppler MV Decel Cloud 322.09 cm/s2 MV PHT 0 s MV Area (PHT) 3.31 cm2 4.00-5.00 MV Diastolic Function MV E Peak Velocity 73.87 cm/s MV A Peak Velocity 77.72 cm/s MV E/A 0.95 MV Decel Time 0 s Tricuspid Valve Name Value Normal TV Regurgitation Doppler TR Peak Velocity 227.83 cm/s TR Peak Gradient 20 mmHg Estimated PAP/RSVP RA Pressure 5 mmHg <=5 PA Systolic Pressure 26 mmHg <36 RV Systolic Pressure 26 mmHg <36 Aorta Name Value Normal Ascending Aorta Ao Root Diameter (MM) 3.37 cm Ao Root Diam Index (MM) 1.80 cm/m2 Aortic Valve Name Value Normal AV Doppler AV Peak Velocity 114.93 cm/s AV Peak Gradient 5 mmHg AV Mean Gradient 3 mmHg AV VTI 22.08 cm AV Area (Cont Eq VTI) 2.99 cm2 >=3.00 AV Area (Cont Eq Moise) 3.26 cm2 AV Regurgitation 2D LVOT Area 2.88 cm2 Ventricles Name Value Normal LV Dimensions 2D/MM IVS Diastolic Thickness (2D) 0.95 cm 0.60-1.00 IVS Diastole Thickness (MM) 0.95 cm 0.60-1.00 LVID Diastole (2D) 5.50 cm 4.20-5.80 LVID Diastole (MM) 6.26 cm 4.20-5.80 LVIW Diastolic Thickness (2D) 0.84 cm 0.60-1.00 LVIW Diastolic Thickness (MM) 1.24 cm 0.60-1.00 LVID Systole (2D) 4.88 cm 2.50-4.00 LVID Systole (MM) 4.84 cm 2.50-4.00 LVOT Diameter 1.92 cm LV Mass (2D Cubed) 185.39 g 88.00-224.00 LV Mass Index (2D Cubed) 0.01 g/cm2 0.00-0.01 Relative Wall Thickness (2D) 0.31 LV Mass (MM Cubed) 298.33 g 88.00-224.00 LV Mass Index (MM Cubed) 0.02 g/cm2 0.00-0.01 Relative Wall Thickness (MM) 0.40 LV Fractional Shortening/Ejection Fraction 2D/MM LV Fractional Shortening (2D) 11 % 25-43 LV Fractional Shortening (MM) 23 % 25-43 LV EF (MM Teicholz) 45 % 52-72 LV EF (2D Teicholz) 24 % 52-72 LV Diastolic Volume (4C MOD) 177.24 ml LV EF (4C MOD) 41 % LV Diastolic Volume (2C MOD) 160.22 ml LV EF (2C MOD) 43 % LV Diastolic Volume (BP MOD) 168.36 ml 62.00-150.00 LV Diastolic Volume Index (BP MOD) 0.09 l/m2 0.03-0.07 LV Systolic Volume (BP MOD) 100.22 ml 21.00-61.00 LV Systolic Volume Index (BP MOD) 0.05 l/m2 0.01-0.03 LV EF (BP MOD) 40 % 52-72 LV Diastolic Length (4C) 10.08 cm LV Systolic Length (4C) 9.06 cm LV Stroke Volume (4C MOD) 72.82 ml Atria Name Value Normal LA Dimensions LA Dimension (MM) 3.43 cm 3.00-4.10 LA Volume (4C A-L) 48.98 ml LA Volume (BP A-L) 46.69 ml RA Dimensions RA Area (4C) 15.40 cm2 <=18.00 EchoPAC Name Value Normal AutoEF LVCO_BiP_Q (Itzx8LMM) 3.99 l/min LVEF_BiP_Q (Aptj1HHU) 33 % LVSV_BiP_Q (Sbrz0PQI) 63.57 ml LVVED_BiP_Q (Nxuk7DVD) 190.51 ml LVVES_BiP_Q (Scsk3HLZ) 126.93 ml HR_4Ch_Q (Dlbj7RUY) 63 1/min LVCO_4Ch_Q (Sbzc6DBA) 4.66 l/min LVEF_4Ch_Q (Uybd3IRH) 38 % LVLd_4Ch_Q (Xxqk4MUV) 9.58 cm LVLs_4Ch_Q (Pqxe2WQK) 8.68 cm LVSV_4Ch_Q (Ikiy5WIN) 74.44 ml LVVED_4Ch_Q (Kzhm0HSM) 197.54 ml LVVES_4Ch_Q (Bimt9DLQ) 123.11 ml HR_2Ch_Q (Xqbb5PWI) 61 1/min LVCO_2Ch_Q (Anxe3BFL) 3.31 l/min LVEF_2Ch_Q (Cova4WRU) 29 % LVLd_2Ch_Q (Siul7IBP) 9.12 cm LVLs_2Ch_Q (Hgxy1EYQ) 8.22 cm LVSV_2Ch_Q (Bxjb4UGP) 54.02 ml LVVED_2Ch_Q (Ykkd6XNL) 187.30 ml LVVES_2Ch_Q (Enmx2JPQ) 133.27 ml TAMI AA peak sys SL (AWMA) 11 % AAS peak sys SL (AWMA) 9 % AI peak sys SL (AWMA) 15 % AL peak sys SL (AWMA) 13 % AP peak sys SL (AWMA) 11 % peak sys SL (AWMA) 14 % AVC (AWMA) 0 s BA peak sys SL (AWMA) 4 % BAS peak sys SL (AWMA) 2 % BI peak sys SL (AWMA) 6 % BL peak sys SL (AWMA) 8 % BP peak sys SL (AWMA) 5 % BS peak sys SL (AWMA) 3 % G peak SL(A2C) (AWMA) 8 % G peak SL(A4C) (AWMA) 9 % G peak SL(APLAX) (AWMA) 7 % G peak SL(Avg) (AWMA) 8 % MA peak sys SL (AWMA) 7 % MAS peak sys SL (AWMA) 11 % NV peak sys SL (AWMA) 13 % ML peak sys SL (AWMA) 12 % MP peak sys SL (AWMA) 10 % MS peak sys SL (AWMA) 11 % Report Signatures
[2024-10-24] MEDS: PERFLUTREN LIPID MICROSPHERES 1.5 ML VIAL DILUTED TO 10 ML TOTAL VOLUME IV PUSH (08:50)
--- NOTE | 2024-10-24 10:49 | IVDEFINITY ---
Prior to administration of IV Definity the patient was educated on the risks and benefits of the imaging enhancing agent including potential adverse side effects. The patient verbalized understanding. Allergies were verified. No exclusion criteria were identified and at least one of the following inclusion criteria were met: 1) physician request, 2) patient technically difficult to image (per the [place] [employer] Echocardi[employer] guidelines of two or more segments not discernable within the apical view), or 3) questionable left ventricular function. ?
== END 2024-10-24 07:47 | disposition home or self-care (01) ==
PROVIDERS: PCP Internal Medicine Infectious Disease; Visit Provider Internal Medicine Cardiovascular Disease
DX: I50.22 Chronic systolic (congestive) heart failure (principal); I36.1 Nonrheumatic tricuspid (valve) insufficiency
CPT/HCPCS: C8929; Q9957

== ENCOUNTER 2025-03-09 15:55 | Emergency (ER) | payer MEDICARE, MEDICAID, SELFPAY ==
--- NOTE | ~2025-03-09 | CT_ITS ---
CT abdomen pelvis w con Ordering provider: Lexus Mcfarland PA-C History: 49 years Male with . abd pain, nausea . Comparison: June 13, 2023 Technique: CT abdomen and pelvis with IV and without oral contrast. Automated exposure control and it erative reconstruction technique were employed. The dose-length product was 439.41 mGy-cm. 100 mL Omn ipaque 350 was given IV. Findings: VISUALIZED LOWER CHEST: Normal. Trace of pericardial effusion. UPPER ABDOMINAL ORGANS: Liver: Fat infiltration. Gallbladder: Status post cholecystectomy. Spleen: Normal. Stomach/duodenum: Normal. Pancreas: Normal. Adrenals: Bilateral adrenal adenomas measuring 1.2 cm on the left side and 2 cm on the right side. MR I evaluation advised. Kidneys: Small cyst in the left kidney upper pole. Small cysts in the left kidney lower pole measurin g 1.1 and 1.8 cm. PELVIC ORGANS: The bladder is normal. BOWEL AND MESENTERY: Colon: No evidence of diverticulitis. Appendix is not demonstrated. Small Bowel: Normal. No obstruction. Peritoneum/mesentery: No free air or free fluid. No mesenteric lymphadenopathy. RETROPERITONEUM: Mild atheromatous disease of the abdominal aorta. No retroperitoneal lymphadenopat hy. MUSCULOSKELETAL: Superficial soft tissues: The superficial soft tissues are normal. Bones: Age appropriate degenerative changes of the spine. IMPRESSION: 1. No evidence of appendicitis, diverticulitis or intestinal obstruction. 2. Bilateral adrenal adenomas with the largest measures 2 cm. MRI evaluation advised. 3. Fat infiltration of the liver. Reviewed, dictated and finalized at location A. IMPRESSION: 1. No evidence of appendicitis, diverticulitis or intestinal obstruction. 2. Bilateral adrenal adenomas with the largest measures 2 cm. MRI evaluation a dvised. 3. Fat infiltration of the liver.
--- OUTSIDE RECORDS SUMMARY | 2025-03-09 15:57 | XMS_ITS | Continuity of Care Document ---
Author Organization [facility] Address [address] [place] [address] [address] [place] [address] Phone Care Team Providers Care Radioisotope Technologist Name Role Phone Keshav OD, Stella Unavailable Unavailable Allergies, Adverse Reactions, Alerts Substance Reaction Status Criticality No Known Allergies Active No Inform ation Medications Medication Instructions Dosage Effective Dates (start - stop) Status Comments Entresto 24 mg-26 mg tablet take 1 tablet by oral route 2 times every day 1.00 tablet - Active carvedilol 25 mg tablet take 1 tablet by oral route 2 times every day with food 25 MG - Active spironolactone 25 mg tablet take 1 tablet by oral route every day 25 MG - Active Procedures Procedure Date No Charge Optomap Fundus Photos 022 Office/outpatient Visit, [facility] Advance Directives Directive Yes / No Effective Date File Name No Information Encounters Encounter Description Practice Location Reason(s) For Visit Diagnoses Date Provider Providers Copied on Encounter Office/outpa tient Visit, [facility], [address] [place], [place] [address], [place], [place], [id number], [place] tel:[phone] SEC [facility] Professional Diabetic eye exam (chief complaint) Combined forms of age-related cataract, bilateralType 2 diabetes mellitus without complications 2 Keshav OD Stella. [address] [place] [address], [facility] [address], [place], [place], [id number], [place]. tel:[phone] Specialist: Miladys Chapman MD, [address] [place] [address] [place], [address]. tel:[phone] ist: Cornelio Luke DO, [address] [facility] [address], [place], [address]. tel:[phone] ng Provider: MD Tiburcio Rodríguez, [address], [place], [address]. tel:[phone] [facility] Eye [facility], [address], [place], [place], [id number], tel:[phone] [facility] Professional No Information 2 Keshav OD Stella. [address], [address], [place], [place], [id number], . tel:[phone] Specialist: Miladys Chapman MD, [address] [place] [address] [address], [place], [address]. tel:[phone] ist: Cornelio Luke DO, [address] [facility] [address], [place], [address]. tel:[phone] ng Provider: MD Tiburcio Rodríguez, [address], [place], [address]. tel:[phone] Family History Family Member Type Diagnosis Age At Onset Problem Family history of Diabetes m dwayne Payers Payer name Insurance type Covered alliance party ID Authoriza tion(s) Medicare [facility] [id number] Medicaid [facility] [id number] Social History Type Description Quantity Date Captured Comments Alcohol Use Details > 5 glasses monthly 2021 Caffeine Use Details 3 cups per day Tobacco Use Status Current non-smoker Smoking Status Never smoker Non-Smoking Tobacco Use Details : No Details Available : No Details Available Sex Male Chief Complaint And Reason For Visit From encounter dated '09/23/2022 14:30'. Diabetic eye exam (chief complaint). Description: The 46 year old patient presents for evaluation of Diabetic eye exam in the right eye and left eye. Patient states he started wearing OTC reading glasses about a year ago to help see up close. Patient states he is Prediab, BS checked two days ago @ 123, a1c 7.1, and Dr. Chapman monitors his BS. Patient states he sees black lines in his VA, that comesago. Reason For Referral Reason For Referral No Information Plan Of Treatment Date Type Action Status Patient Education Cataracts: Care Instruc tions completed History Of Present Illness Encounter Date Complaint History Of Prese nt Illness Diabetic eye exam The 46 year ol d patient presents for evaluation of Diabetic eye exam in the right eye and left eye. Patient states he started wearing OTC reading glasses about a year ago to help see up close. Patient states he is Prediab, BS checked two days ago @ 123, a1c 7.1, and Dr. Chapman monitors his BS. Patient states he sees black lines in his VA, that comes ago. Functional Status Date Functional Assessmen t No Information Instructions Date Instruction Additional Infor mation Impression/Plan Assessments Type Assessment Date assessment Combined forms of age-related ca taract, bilateral assessment Type 2 diabetes mellitus without complications Patient Care Teams Name Effective Dates (start - stop) Status Members No Information
[2025-03-09 15:58] VITALS: BP 141/94; PULSE 83; RESP 18; TEMP 36.4; O2SAT 100
[2025-03-09 17:35] LABS: Add Urine Microscopic? NO; Appearance Urine Clear (Clear); Bilirubin Urine Negative (Negative); Blood Urine Negative (Negative); Color Urine Yellow (Yellow); Glucose Urine UA Negative (Negative); Ketones Urine Negative (Negative); Leukocyte Esterase Ur Negative LEU/UL (Negative); Nitrate Urine Negative (Negative); Protein Urine Negative (Negative); Specific Grav Ur 1.004 (1.001-1.035); Urobilinogen Urine 0.2 mg/dL (<2.0)
[2025-03-09 17:36] LABS: Basophils Absolute Auto 0.1 K/mm3 (0.0-0.1); Basophils Percent Auto 0.8 % (0.2-1.2); Eosinophils Absolute Auto 0.6 K/mm3 (0-0.3); Eosinophils Percent Auto 8.1 % (0-4.4); Hematocrit 40.2 % (42.0-52.0); Hemoglobin 13.3 g/dL (14.0-18.0); Immature Granulocyte Absolute 0.03 K/mm3 (0.00-0.031); Immature Granulocyte Percent A 0.4 % (0-0.5); Immature Platelet Fraction Pct 12.9 % (0.9-11.2); Lymphocytes Percent Auto 19.3 % (18.3-44.2); Mean Corpuscular HGB Conc 33.1 g/dl (32-36); Mean Corpuscular Volume 90.5 fl (80-100); Monocytes Absolute Auto 0.6 K/mm3 (0.1-0.6); Monocytes Percent Auto 8.8 % (2.6-8.5); Neutrophils Absolute Auto 4.5 K/mm3 (1.3-6.7); Neutrophils Percent Auto 62.6 % (45.5-73.1); Platelet Count Result 123 k/mm3 (150-375); Red Blood Count 4.44 M/mm3 (4.6-6.20); Red Cell Distribution Width 12.9 % (11.5-14.5); White Blood Count 7.3 K/mm3 (4.5-10.0)
[2025-03-09 17:42] VITALS: BP 134/81; PULSE 72; RESP 18; O2SAT 100
[2025-03-09 17:51] LABS: Alanine Aminotransferase 23 U/L (6-50); Albumin Level 4.7 g/dL (3.5-5.1); Alkaline Phosphatase 34 U/L (38-126); Anion Gap 11 mmol/L (4-12); Aspartate Amino Transferase 22 U/L (17-59); Bilirubin,Total 0.5 mg/dL (0.2-1.3); Blood Urea Nitrogen 9 mg/dL (9-20); Calcium 9.4 mg/dL (8.4-10.2); Carbon Dioxide 23 mmol/L (22-30); Chloride 103 mmol/L (98-107); Estimated CRCL calculation 75 ml/min; Estimated Glomerular Filt Rate > 60; Glucose 134 mg/dL (65-110); Lipase 62 U/L (23-300); Potassium 4.7 mmol/L (3.4-5.0); Sodium 137 mmol/L (137-145)
[2025-03-09 18:01] VITALS: BP 124/76; PULSE 71; RESP 18; O2SAT 97
--- NOTE | 2025-03-09 18:29 | ECG_ITS ---
Test Date: 2025-03-09 18:54:22 Measurements Intervals [place] Rate: 70 P: 14 NH: 166 QRS: -26 QRSD: 138 T: -18 QT: 381 QTc: 412 Interpretive Statements SINUS RHYTHM INTRAVENTRICULAR CONDUCTION DELAY DELAYED PRECORDIAL R/S TRANSITION LEFT VENTRICULAR HYPERTROPHY AND ST-T CHANGE BORDERLINE T WAVE ABNORMALITY- INFERIOR LEADS BASELINE ARTIFACT- I, II, III, AVR, AVL, AVF BORDERLINE ECG No previous ECG available for comparison Electronically Signed On 03-09-2025 20:29:15 CDT by Cornelio Luke D.O.
--- NOTE | 2025-03-09 18:33 | ED_ITS ---
HPI - Abdominal Pain General Chief Complaint: Abdominal Pain Stated Complaint: epigastric pain Time Seen by Provider: 03/09/25 17:15 Source: patient Mode of arrival: ambulatory Limitations: no limitations History of Present Illness HPI narrative: This is a 49 year old male that presents to the ER for abdominal pain, nausea. Ongoing since yesterday. Reports worse with eating and drinking. Reports epigastric pain, that is sharp and intermittent. Denies fevers, vomiting, diarrhea. Related Data Allergies Allergy/AdvReac Type Severity Reaction Status Date / Time No Known Allergies Allergy Verified 03/09/25 17:42 Review of Systems 2 Review of Systems: CONSTITUTIONAL: Denies fever CARDIOVASCULAR: Denies chest pain RESPIRATORY: Denies dyspnea. GASTROINTESTINAL: Reports abdominal pain, nausea, vomiting GENITOURINARY: Denies dysuria or hematuria. All systems reviewed & are unremarkable except as noted in HPI and below PMFSH Past Medical History Medical History Anxiety Asthma Cardiomyopathy CHF (congestive heart failure) Diabetes Heart disease History of chemotherapy History of radiation therapy Hodgkin lymphoma HTN (hypertension) Pacemaker Surgical History Surgical History History of appendectomy History of cardiac defibrillator placement History of cholecystectomy History of removal of Port-a-Cath History of surgery Lymph node resection's Family History Family History Mother Diabetes mellitus Family history of cardiovascular disease Hypertension Family history of diabetes mellitus in first degree relative Father Family history of cardiovascular disease Family history of malignant neoplasm Family history of heart disease in male family member before age 55 Grandparent Hypertension Heart problem Cerebrovascular accident Other Family history of lung disease Social History Social History Smoking packs per day: 1 Smoking cigarettes per day: 20.0 Years smoked: 25 Smoking pack-years: 25.00 Smoking status: Former smoker Tobacco type: cigarettes Second hand tobacco smoke exposure: Yes Smoking end date: 11/22/20 Alcohol intake: current Alcohol use details: Social Substance use: never Substance use type: does not use Do You Feel Safe in your Home?: Yes Lack of Transportation: No Lack of Food: Never True Current Housing: I Have Housing Concerned About Future Housing: No Difficulty Paying Gas/Electric Bills: No Difficulty Paying for Meds: YES Currently Unemployed: Decline to Answer Education: Decline to Answer Difficulty w/ Childcare or Family Care: No Living arrangements: with family Occupation/Education: retired Gender identity (if verbalized by the patient): Male Exam 2 Narrative: GENERAL: Well-appearing, well-nourished, and in no acute distress. HEAD: Normocephalic, atraumatic. EYES: EOMI. CHEST: Clear to auscultation. No respiratory distress. No wheezes rales or rhonchi HEART: Regular rate and rhythm. No murmur heard. Normal peripheral pulses. ABDOMEN: Soft, nondistended, normal active bowel sounds. Tender to palpation in the epigastrium, without guarding EXTREMITIES: Normal range of motion. No edema. SKIN: Warm, dry, no rash. NEURO: No focal deficits. Alert and oriented x3. PSYCH: Normal mood and affect Course Course Emergency Course: Patient updated on his workup and agrees with plan of care Vital Signs Vital signs: Vital Signs Temperature 97.6 F 03/09/25 15:58 Pulse Rate 83 03/09/25 15:58 Respiratory Rate 18 03/09/25 15:58 Blood Pressure 141/94 H 03/09/25 15:58 Pulse Oximetry 100 03/09/25 15:58 Temperature 97.6 F 03/09/25 15:58 Pulse Rate 76 03/09/25 20:12 Respiratory Rate 14 03/09/25 20:12 Blood Pressure 132/84 03/09/25 20:12 Pulse Oximetry 98 03/09/25 20:12 MDM - Abdominal Pain MDM Narrative Medical decision making narrative: Patient presents to the emergency department for abdominal pain and nausea. Ongoing since yesterday. Worse with eating. He is afebrile and nontoxic appearing. His vitals are stable. Cbc without leukocytosis. Metabolic panel without concerning findings. Lipase is normal. Urine without evidence of infection. CT abdomen and pelvis is without evidence of appendicitis, diverticulitis or intestinal obstruction. Shows bilateral adrenal adenomas. Fatty infiltration of the liver. Patient updated on his workup and agrees with plan of care. He does report he has a prescription for omeprazole, but is not currently taking it. Encouraged to start this and have close follow-up with his primary provider. He was given warnings to return to the ER Differential Diagnosis Differential diagnosis: Likely constipation, diverticulitis and other (GERD, pancreatitis, esophagitis, gastritis, PUD) Lab Data Attestation: I reviewed the patient's lab results. 03/09/25 17:24 03/09/25 17:24 Labs: Lab Results 03/09/25 03/09/25 Range/Units 17:23 17:24 WBC 7.3 (4.5-10.0) K/mm3 RBC 4.44 L (4.6-6.20) M/mm3 Hgb 13.3 L (14.0-18.0) g/dL Hct 40.2 L (42.0-52.0) % MCV 90.5 (80-100) fl MCH 30.0 (26-34) pg MCHC 33.1 (32-36) g/dl RDW 12.9 (11.5-14.5) % Plt Count 123 L (150-375) k/mm3 MPV 12.0 H (7.4-10.4) fl Immature Gran % (Auto) 0.4 (0-0.5) % Neut % (Auto) 62.6 (45.5-73.1) % Lymph % (Auto) 19.3 (18.3-44.2) % [place] % (Auto) 8.8 H (2.6-8.5) % Eos % (Auto) 8.1 H (0-4.4) % Baso % (Auto) 0.8 (0.2-1.2) % Lymph # (Auto) 1.40 (0.9-3.2) K/mm3 [place] # (Auto) 0.6 (0.1-0.6) K/mm3 Eos # (Auto) 0.6 H (0-0.3) K/mm3 Baso # (Auto) 0.1 (0.0-0.1) K/mm3 Abs Immat Gran (auto) 0.03 (0.00-0.031) K/mm3 Absolute Neuts (auto) 4.5 (1.3-6.7) K/mm3 Absolute Nucleated RBC 0.000 (0.0-0.012) K/mm3 Nucleated RBC % 0.0 (0.0-0.2) % % Immature Plt Fraction 12.9 H (0.9-11.2) % Sodium 137 (137-145) mmol/L Potassium 4.7 (3.4-5.0) mmol/L Chloride 103 (98-107) mmol/L Carbon Dioxide 23 (22-30) mmol/L Anion Gap 11 (4-12) mmol/L BUN 9 D (9-20) mg/dL Creatinine 0.93 (0.7-1.3) mg/dL Estim Creat Clear Calc 75 ml/min Estimated GFR > 60 (59 - ) Glucose 134 H (65-110) mg/dL Calcium 9.4 (8.4-10.2) mg/dL Total Bilirubin 0.5 (0.2-1.3) mg/dL AST 22 (17-59) U/L ALT 23 (6-50) U/L Alkaline Phosphatase 34 L (38-126) U/L Troponin I < 0.012 (0.000-0.034) ng/mL Total Protein 8.0 (6.3-8.2) g/dL Albumin 4.7 (3.5-5.1) g/dL Lipase 62 (23-300) U/L Urine Color Yellow (Yellow) Urine Appearance Clear (Clear) Urine pH 6.0 (5.0-9.0) Ur Specific [place] 1.004 (1.001-1.035) Urine Protein Negative (Negative) mg/dL Urine Glucose (UA) Negative (Negative) mg/dL Urine Ketones Negative (Negative) mg/dL Ur Blood (Man) Negative (Negative) Urine Nitrate Negative (Negative) Urine Bilirubin Negative (Negative) Urine Urobilinogen 0.2 (<2.0) mg/dL Leukocyte Esterase Rfl Negative (Negative) MANDY/UL Imaging Data Radiologist's impression: ITS Impressions Abdomen/Pelvis CT 03/09/25 20:54 IMPRESSION: 1. No evidence of appendicitis, diverticulitis or intestinal obstruction. 2. Bilateral adrenal adenomas with the largest measures 2 cm. MRI evaluation advised. 3. Fat infiltration of the liver. ECG Data EKG #1: ECG completion date: 03/09/25 normal rate, sinus rhythm, non-specific ST changes, normal QT and no acute changes (compared to EKG 10/14) Critical Care Time Critical Care Time Critical Care Time: No Discharge Plan Discharge Clinical Impression: Epigastric pain Adrenal adenoma Qualifiers: Laterality: unspecified laterality Qualified Code(s): D35.00 - Benign neoplasm of unspecified adrenal gland Patient Disposition: Home Condition: Stable Instructions: Abdominal Pain (ED) Additional Instructions: Return to the ER if you experience fever, abdominal pain with nausea and vomiting, you are unable to keep down liquids or solids, or any other symptoms that are concerning to you Small, frequent meals. Wood diet. Remain well hydrated. Take omeprazole as prescribed. Avoid spicy/acidic foods. Avoid eating just before bedtime. Avoid anti-inflammatories. Avoid alcohol Follow up with your primary care doctor. The radiologist has incidentally found some adenomas on your adrenal glands. He is recommending further imaging to evaluate these Patient Language: Arabic Prescriptions: No Action albuterol sulfate 90 mcg/actuation HFA aerosol inhaler 1 inh inhalation Q4H PRN (Reason: shortness of breath or wheezing) 30 Days Qty: 8.5 3RF Rx Instructions: take 1-2 puffs every 6 hours as needed for shortness of breath furosemide 20 mg tablet 20 mg PO QAM Qty: 90 2RF spironolactone 25 mg tablet See Rx Instructions .ROUTE .COMPLEX Qty: 30 5RF Dose Instruction: Take 1 tablet by mouth once daily Rx Instructions: Take 1 tablet by mouth once daily Jardiance 10 mg tablet See Rx Instructions .ROUTE .COMPLEX Qty: 90 2RF Dose Instruction: Take 1 tablet by mouth once daily Rx Instructions: Take 1 tablet by mouth once daily carvedilol 25 mg tablet See Rx Instructions .ROUTE .COMPLEX Qty: 60 5RF Dose Instruction: TAKE 1 TABLET BY MOUTH EVERY 12 HOURS. MUST TAKE WITH A MEAL/FOOD. Rx Instructions: TAKE 1 TABLET BY MOUTH EVERY 12 HOURS. MUST TAKE WITH A MEAL/FOOD. Entresto 24-26 mg tablet See Rx Instructions .ROUTE .COMPLEX Qty: 60 5RF Dose Instruction: Take 1 tablet by mouth twice daily Rx Instructions: Take 1 tablet by mouth twice daily atorvastatin 10 mg tablet See Rx Instructions .ROUTE .COMPLEX Qty: 90 2RF Dose Instruction: Take 1 tablet by mouth once daily Rx Instructions: Take 1 tablet by mouth once daily Follow-up/Referrals: Judy,Chidi Valladares MD [Primary Care Provider] -
[2025-03-09 18:52] LABS: Troponin I < 0.012 ng/mL (0.000-0.034)
--- OUTSIDE RECORDS SUMMARY | 2025-03-09 18:56 | XMS_ITS | Continuity of Care Document ---
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 Name Role Phone Keshav OD, Stella Unavailable [...] Charge Optomap Fundus Photos 022 Office/outpatient Visit, [facility] Advance Directives Directive Yes / No Effective Date File Name No Information Encounters Encounter Description Practice Location Reason(s) For Visit Diagnoses Date Provider Providers Copied on Encounter Office/outpa tient Visit, [facility], [address] [place], [place] [address], [place], [place], [id number], [place] tel:[phone] SEC [facility] SAEED Professional Diabetic eye exam (chief complaint) Combined forms of age-related cataract, bilateralType 2 diabetes mellitus without complications 2 Keshav OD Stella. [address] [place] [address], [facility] [address], [place], [place], [id number], [place]. tel:[phone] Specialist: Miladys Chapman MD, [address] [place] [address] [place], [address]. tel:[phone] ist: Cornelio Luke DO, [address] [facility] [address], [place], [address]. tel:[phone] ng Provider: MD Tiburcio Rodríguez, [address], [place], [address]. tel:[phone] [facility], [address], [place], [place], [id number], tel:[phone] SEC [facility] Professional No Information 2 Keshav OD Stella. [address], [address], [place], [place], [id number], . tel:[phone] Specialist: Miladys Chapman MD, [address] [place] [address] [address], [place], [address]. tel:[phone] ist: Cornelio Luke DO, [address] [facility] [address], [place], [address]. tel:[phone] ng Provider: MD Tiburcio Rodríguez, [address], [place], [address]. tel:[phone] Family History Family Member Type Diagnosis Age At Onset Problem Family history of Diabetes m dwayne Payers Payer name Insurance type Covered libertarian ID Authoriza tion(s) Medicare [facility] [id number] Medicaid [facility] [id number] Social History Type Description Quantity Date Captured [...]
[2025-03-09] MEDS: PANTOPRAZOLE SODIUM IV 40 MG VIAL IV PUSH (18:58)
[2025-03-09] MEDS: ONDANSETRON INJ 4 MG/2 ML VIAL IV PUSH (18:58)
[2025-03-09 20:12] VITALS: BP 132/84; PULSE 76; RESP 14; O2SAT 98
--- NOTE | 2025-03-09 21:56 | PC.NURSE ---
EDP at bedside.
[2025-03-09 22:13] VITALS: BP 134/90; PULSE 60; RESP 16; TEMP 36.8; O2SAT 99
[2025-03-09 22:19] VITALS: BP 134/90; PULSE 60; RESP 16; TEMP 36.8; O2SAT 99
== END 2025-03-09 22:12 | disposition home or self-care (01) ==
PROVIDERS: Emergency Medicine; Emergency Provider Physician Assistant; PCP Internal Medicine Infectious Disease
DX: R10.13 Epigastric pain (principal); D35.02 Benign neoplasm of left adrenal gland; D35.01 Benign neoplasm of right adrenal gland; J45.909 Unspecified asthma, uncomplicated; I42.9 Cardiomyopathy, unspecified; I50.9 Heart failure, unspecified; I11.0 Hypertensive heart disease with heart failure; Z85.71 Personal history of Hodgkin lymphoma; Z92.21 Personal history of antineoplastic chemotherapy; Z92.3 Personal history of irradiation; Z95.810 Presence of automatic (implantable) cardiac defibrillator; Z87.891 Personal history of nicotine dependence; Z90.49 Acquired absence of other specified parts of digestive tract; K76.0 Fatty (change of) liver, not elsewhere classified; I45.9 Conduction disorder, unspecified; R94.31 Abnormal electrocardiogram [ECG] [EKG]; I51.7 Cardiomegaly
CPT/HCPCS: 36415; 74177; 80053; 81003; 83690; 84484; 85025; 85055; 93005; 96374; 96375; 99284; J2405; J2470; Q9967

== ENCOUNTER 2025-10-04 18:34 | Emergency (ER) | payer MEDICARE, MEDICAID, SELFPAY ==
--- NOTE | ~2025-10-04 | CT_ITS ---
CT brain wo con HISTORY:head injury COMPARISON: None. TECHNIQUE: Axial images were obtained of the head without intravenous contrast. FINDINGS: No acute intracranial hemorrhage, mass effect or midline shift. No extra-axial fluid collections. The calvarium is intact. Visualized paranasal sinuses and mastoid air cells are clear. IMPRESSION: No acute intracranial hemorrhage or extra axial fluid collections. All CT scans at this facility are performed using low dose modulation techniques as appropriate to perform exam including the following: automated exposure control; use of iterative reconstruction technique; adjustment of the mA and/or kV according to patient size (this includes techniques or standardized protocols for targeted exams where dose is matched to indication/reason for exam). Reviewed, dictated and finalized at location S. CAL CODING TECHNICIAN IMPRESSION: No acute intracranial hemorrhage or extra axial fluid collections. All CT scans at this facility are performed using low dose modulation techniqu es as appropriate to perform exam including the following: automated exposure c ontrol; use of iterative reconstruction technique; adjustment of the mA and/or kV according to patient size (this includes techniques or standardized protocol s for targeted exams where dose is matched to indication/reason for exam).
[2025-10-04 18:43] VITALS: BP 126/82; PULSE 90; RESP 18; TEMP 36.4; O2SAT 99
--- NOTE | 2025-10-04 18:45 | ED_ITS ---
HPI - Head Injury General Chief complaint: Head Injury <Lexus Mcfarland PA-C - Last Filed: 10/13/25 15:02> Stated complaint: head injury <Lexus Mcfarland PA-C - Last Filed: 10/13/25 15:02> Time Seen by Provider: 10/04/25 18:45 <Lexus Mcfarland PA-C - Last Filed: 10/13/25 15:02> Focused HPI: This is a 49 year old male that presents to the ER for head injury. Sustained just prior to arrival. Reports he stood up and hit his head. Reports abrasion to the area. Headache. He is not on blood thinners. GENERAL: Well-appearing, well-nourished, and in no acute distress. HEAD: Normocephalic. Abrasion to the scalp CHEST: Clear to auscultation. ?No respiratory distress. HEART: Regular rate and rhythm.? NEURO: ?Alert and oriented x3. Patient screened in triage and initial orders placed.? ?Additional care and disposition to be based upon?diagnostic testing and treatment. <Lexus Mcfarland PA-C - Last Filed: 10/13/25 15:02> Related Data Allergies/Adverse reactions: Allergies Allergy/AdvReac Type Severity Reaction Status Date / Time No Known Allergies Allergy Verified 10/04/25 18:46 <Lexus Mcfarland PA-C - Last Filed: 10/13/25 15:02> Review of Systems Review of Systems: All systems reviewed & are unremarkable except as noted in HPI and below <Lexus Mcfarland PA-C - Last Filed: 10/13/25 15:02> PMFSH Past Medical History Medical History: Medical History Anxiety Asthma Cardiomyopathy CHF (congestive heart failure) Diabetes Heart disease History of chemotherapy History of radiation therapy Hodgkin lymphoma HTN (hypertension) Pacemaker <Lexus Mcfarland PA-C - Last Filed: 10/13/25 15:02> Surgical History Surgical History: Surgical History History of appendectomy History of cardiac defibrillator placement History of cholecystectomy History of removal of Port-a-Cath History of surgery Lymph node resection's <Lexus Mcfarland PA-C - Last Filed: 10/13/25 15:02> Family History Family History: Family History Mother Diabetes mellitus Family history of cardiovascular disease Hypertension Family history of diabetes mellitus in first degree relative Father Family history of cardiovascular disease Family history of malignant neoplasm Family history of heart disease in male family member before age 55 Grandparent Hypertension Heart problem Cerebrovascular accident Other Family history of lung disease <Lexus Mcfarland PA-C - Last Filed: 10/13/25 15:02> Social History Social History: Social History Smoking packs per day: 1 Smoking cigarettes per day: 20.0 Years smoked: 25 Smoking pack-years: 25.00 Smoking status: Former smoker Tobacco type: cigarettes Second hand tobacco smoke exposure: Yes Smoking end date: 11/22/20 Alcohol intake: current Alcohol use details: Social Substance use: never Substance use type: does not use Do You Feel Safe in your Home?: Yes Lack of Transportation: No Lack of Food: Never True Current Housing: I Have Housing Concerned About Future Housing: No Difficulty Paying Gas/Electric Bills: No Difficulty Paying for Meds: YES Currently Unemployed: Decline to Answer Education: Decline to Answer Difficulty w/ Childcare or Family Care: No Living arrangements: with family Occupation/Education: retired Gender identity (if verbalized by the patient): Male <Lexus Mcfarland PA-C - Last Filed: 10/13/25 15:02> Course Vital Signs Vital signs: Vital Signs Temperature 97.5 F L 10/04/25 18:43 Pulse Rate 90 10/04/25 18:43 Respiratory Rate 18 10/04/25 18:43 Blood Pressure 126/82 10/04/25 18:43 Pulse Oximetry 99 10/04/25 18:43 Oxygen Delivery Room Air 10/04/25 18:43 Temperature 97.5 F L 10/04/25 18:43 Pulse Rate 90 10/04/25 18:43 Respiratory Rate 18 10/04/25 18:43 Blood Pressure 126/82 10/04/25 18:43 Pulse Oximetry 99 10/04/25 18:43 Oxygen Delivery Room Air 10/04/25 18:43 <Lexus Mcfarland PA-C - Last Filed: 10/13/25 15:02> Vital Signs Temperature 97.5 F L 10/04/25 18:43 Pulse Rate 90 10/04/25 18:43 Respiratory Rate 18 10/04/25 18:43 Blood Pressure 126/82 10/04/25 18:43 Pulse Oximetry 99 10/04/25 18:43 Oxygen Delivery Room Air 10/04/25 18:43 Temperature 97.5 F L 10/04/25 18:43 Pulse Rate 90 10/04/25 18:43 Respiratory Rate 18 10/04/25 18:43 Blood Pressure 126/82 10/04/25 18:43 Pulse Oximetry 99 10/04/25 18:43 Oxygen Delivery Room Air 10/04/25 18:43 <Silverio Chavez MD - Last Filed: 10/04/25 22:50> MDM - Head Injury MDM Narrative Medical decision making narrative: 49-year-old male presenting to the emergency department for evaluation after having a head injury. Patient states after striking his head he did have some headache and associated nausea. Patient does attribute this to not having anything to eat since breakfast. Time of evaluation patient states he does feel improved. Head CT was negative for acute intracranial abnormality. Patient states he did develop some mild headache after lying down for the CT scan. <Silverio Chavez MD - Last Filed: 10/04/25 22:50> Differential Diagnosis Differential diagnosis: Likely concussion without loss of consciousness, epidural hematoma, closed head injury, subarachnoid hematoma, postconcussion syndrome and subdural hematoma <Silverio Chavez MD - Last Filed: 10/04/25 22:50> Imaging Data Radiologist's impression: Impressions Head CT 10/04/25 20:05 IMPRESSION: No acute intracranial hemorrhage or extra axial fluid collections. All CT scans at this facility are performed using low dose modulation techniques as appropriate to perform exam including the following: automated exposure control; use of iterative reconstruction technique; adjustment of the mA and/or kV according to patient size (this includes techniques or standardized protocols for targeted exams where dose is matched to indication/reason for exam). <Silverio Chavez MD - Last Filed: 10/04/25 22:50> Discharge Plan Discharge Clinical Impression: Closed head injury Qualifiers: Encounter type: initial encounter Qualified Code(s): S09.90XA - Unspecified injury of head, initial encounter <Lexus Mcfarland PA-C - Last Filed: 10/13/25 15:02> Patient Disposition: Home <CEZAR Dietrich Last Filed: 10/13/25 15:02> Condition: Stable <CEZAR Dietrich Last Filed: 10/13/25 15:02> Instructions: Antibiotic Form, Head Injury (ED) <CEZAR Dietrich Last Filed: 10/13/25 15:02> Additional Instructions: Tylenol and ibuprofen for pain control. Have close follow-up with your primary care physician. If you have any worsening symptoms then please call or return to the emergency department. <CEZAR Dietrich Last Filed: 10/13/25 15:02> Patient Language: Turkish <CEZAR Dietrich Last Filed: 10/13/25 15:02> Prescriptions: No Action albuterol sulfate 90 mcg/actuation HFA aerosol inhaler 1 inh inhalation Q4H PRN (Reason: shortness of breath or wheezing) 30 Days Qty: 8.5 3RF Rx Instructions: take 1-2 puffs every 6 hours as needed for shortness of breath furosemide 20 mg tablet 20 mg PO QAM Qty: 90 2RF atorvastatin 10 mg tablet See Rx Instructions .ROUTE .COMPLEX Qty: 90 2RF Dose Instruction: Take 1 tablet by mouth once daily Rx Instructions: Take 1 tablet by mouth once daily spironolactone 25 mg tablet See Rx Instructions .ROUTE .COMPLEX Qty: 30 5RF Dose Instruction: Take 1 tablet by mouth once daily Rx Instructions: Take 1 tablet by mouth once daily carvedilol 25 mg tablet See Rx Instructions .ROUTE .COMPLEX Qty: 60 5RF Dose Instruction: TAKE 1 TABLET BY MOUTH EVERY 12 HOURS. MUST TAKE WITH A MEAL/FOOD. Rx Instructions: TAKE 1 TABLET BY MOUTH EVERY 12 HOURS. MUST TAKE WITH A MEAL/FOOD. sacubitril-valsartan 24-26 mg tablet See Rx Instructions .ROUTE .COMPLEX Qty: 60 5RF Dose Instruction: Take 1 tablet by mouth twice daily Rx Instructions: Take 1 tablet by mouth twice daily Jardiance 10 mg tablet See Rx Instructions .ROUTE .COMPLEX Qty: 90 2RF Dose Instruction: Take 1 tablet by mouth once daily Rx Instructions: Take 1 tablet by mouth once daily <Lexus Mcfarland PA-C - Last Filed: 10/13/25 15:02> Follow-up/Referrals: Judy,Chidi Valladares MD [Primary Care Provider, Unknown] <Lexus Mcfarland PA-C - Last Filed: 10/13/25 15:02>
[2025-10-04] MEDS: ACETAMINOPHEN 500 MG TABLET 1000 MG PO (21:10)
== END 2025-10-04 21:16 | disposition home or self-care (01) ==
PROVIDERS: Emergency Provider Emergency Medicine; PCP Internal Medicine Infectious Disease
DX: S09.90XA Unspecified injury of head, initial encounter (principal); W22.8XXA Striking against or struck by other objects, initial encounter; I50.9 Heart failure, unspecified; J45.909 Unspecified asthma, uncomplicated; I11.0 Hypertensive heart disease with heart failure; Z95.0 Presence of cardiac pacemaker; Z92.3 Personal history of irradiation; Z92.21 Personal history of antineoplastic chemotherapy; Z85.71 Personal history of Hodgkin lymphoma; Z87.891 Personal history of nicotine dependence
CPT/HCPCS: 70450; 99284; A9270

== ENCOUNTER 2025-10-30 07:30 | Outpatient (CLI) | payer MEDICARE, MEDICAID, SELFPAY ==
--- NOTE | 2025-10-30 07:43 | ECHO_ITS ---
Patient Info Name: Atif Temple Age: 49 years : 1975 Gender: Male Ht: 66 in Wt: 162 lbs BSA: 1.86 m2 HR: 70 bpm BP: 128 / 86 mmHg Technical Quality: Good Exam Date: 10/30/2025 8:00 AM Patient Status: O Admit Date: 10/30/2025 Exam Type: CA echo dop color flow w con Complete two-dimensional, color flow and Doppler transthoracic echocardiogram is performed with contrast to opacify the left ventricle and to improve the deliniation of the left ventricle endocardial borders. Layer Up: Jannet Arias Attending Provider: Cornelio Luke DO Contrast/Agitated Saline Contrast/Ag. Saline: Definity Amount: 3.00 ml New IV Access: Left and Antecubital Space Site Condition: IV removed, Site dressing applied and No extravasation Summary 1. Definity contrast administered improved wall motion interpretation. 2. Left ventricular chamber dimension is severely enlarged. 3. Left ventricular systolic function is severely globally reduced, estimated at 20-25. 4. The left ventricular diastolic function is abnormal. 5. E/e' 22 is elevated. 6. Linear artifact in right ventricle suggestive of catheter(s), pacemaker lead(s), or ICD lead(s). 7. Left atrial chamber dimension is mildly enlarged. 8. Linear artifact in the right atrium suggestive of catheter(s), pacemaker lead(s), or ICD lead(s). 9. There is mild aortic valve sclerosis. 10. There is mild mitral valve regurgitation. 11. There is trace tricuspid valve regurgitation. 12. No pulmonary hypertension, estimated pulmonary arterial systolic pressure is 27 mmHg. Left Ventricle Definity contrast administered improved wall motion interpretation. Left ventricular chamber dimension is severely enlarged. Left ventricular systolic function is severely globally reduced, estimated at 20-25. The left ventricular diastolic function is abnormal. E/e' 22 is elevated. Right Ventricle Right ventricular chamber dimension is normal. Right ventricular systolic function is normal. Linear artifact in right ventricle suggestive of catheter(s), pacemaker lead(s), or ICD lead(s). Left Atria Left atrial chamber dimension is mildly enlarged. Right Atria Right atrial chamber dimension is normal. Linear artifact in the right atrium suggestive of catheter(s), pacemaker lead(s), or ICD lead(s). Aortic Valve The aortic valve is trileaflet. There is mild aortic valve sclerosis. There is no aortic valve stenosis. There is no aortic valve regurgitation. Pulmonic Valve There is no pulmonic regurgitation. Mitral Valve There is no mitral valve stenosis. There is mild mitral valve regurgitation. Tricuspid Valve There is trace tricuspid valve regurgitation. No pulmonary hypertension, estimated pulmonary arterial systolic pressure is 27 mmHg. Pericardium/Pleural There is no pericardial effusion. Inferior Vena Cava Normal inferior vena cava with >50% collapse upon inspiration consistent with normal right atrial pressure, 5 mmHg. Aorta The aortic root size at the sinus of Valsalva is normal. Left Ventricular Outflow Tract Name Value Normal LVOT 2D LVOT Diameter 2.0 cm LVOT Doppler LVOT Peak Velocity 124 cm/s LVOT Peak Gradient 6 mmHg LVOT Mean Gradient 4 mmHg LVOT VTI 24 cm LVOT VTI/AV VTI Ratio 0.9 LVOT Stroke Volume 77 ml LVOT CO 5.2 l/min LVOT CI 2.8 l/min/m2 Pulmonic Valve Name Value Normal RVOT Doppler RVOT Peak Velocity 63 cm/s RVOT Peak Gradient 2 mmHg PV Doppler PV Peak Velocity 97 cm/s PV Peak Gradient 4 mmHg Mitral Valve Name Value Normal MV Diastolic Function MV E Peak Velocity 86 cm/s MV A Peak Velocity 107 cm/s MV E/A 0.8 MV Decel Time (PW) 178 ms Tricuspid Valve Name Value Normal TV Regurgitation Doppler TR Peak Velocity 236 cm/s TR Peak Gradient 22 mmHg Estimated PAP/RSVP RA Pressure 5 mmHg <=5 PA Systolic Pressure 27 mmHg <36 RV Systolic Pressure 27 mmHg <36 Aorta Name Value Normal Ascending Aorta Ao Root Diameter (MM) 3.2 cm Ao Root Diam Index (MM) 1.7 cm/m2 Aortic Valve Name Value Normal AV Doppler AV Peak Velocity 136 cm/s AV Peak Gradient 7 mmHg AV Mean Gradient 4 mmHg AV VTI 27 cm AV Area (Cont Eq VTI) 2.9 cm2 >=3.0 AV Area (Cont Eq Moise) 2.9 cm2 AV DI (Moise) 0.91 AV Regurgitation 2D LVOT Area 3.2 cm2 Ventricles Name Value Normal LV Dimensions 2D/MM IVS Diastolic Thickness (2D) 1.1 cm 0.6-1.0 IVS Diastole Thickness (MM) 1.1 cm 0.6-1.0 LVID Diastole (2D) 6.4 cm 4.2-5.8 LVID Diastole (MM) 7.4 cm 4.2-5.8 LVIW Diastolic Thickness (2D) 1.1 cm 0.6-1.0 LVIW Diastolic Thickness (MM) 1.1 cm 0.6-1.0 LVID Systole (2D) 5.7 cm 2.5-4.0 LVID Systole (MM) 6.1 cm 2.5-4.0 LVOT Diameter 2.0 cm LV Mass (2D Cubed) 309.08 g 88.00-224.00 LV Mass Index (2D Cubed) 166 g/m2 49-115 Relative Wall Thickness (2D) 0.33 <=0.42 LV Mass (MM Cubed) 401.98 g 88.00-224.00 LV Mass Index (MM Cubed) 216 g/m2 49-115 Relative Wall Thickness (MM) 0.31 LV Fractional Shortening/Ejection Fraction 2D/MM LV Fractional Shortening (2D) 11 % 25-43 LV Fractional Shortening (MM) 17 % 25-43 LV EF (MM Teichholz) 35 % LV EF (2D Teichholz) 22 % LV Diastolic Volume (4C MOD) 224 ml LV EF (4C MOD) 20 % LV Diastolic Volume (2C MOD) 174 ml LV EF (2C MOD) 22 % LV Diastolic Volume (BP MOD) 199 ml 62-150 LV Diastolic Volume Index (BP MOD) 107 ml/m2 34-74 LV Systolic Volume (BP MOD) 158 ml 21-61 LV Systolic Volume Index (BP MOD) 85 ml/m2 11-31 LV EF (BP MOD) 20 % 52-72 LV Diastolic Length (4C) 9.6 cm LV Systolic Length (4C) 9.3 cm LV Stroke Volume (4C MOD) 44 ml Atria Name Value Normal LA Dimensions LA Dimension (MM) 3.6 cm 3.0-4.0 LA Volume (4C A-L) 44 ml LA Volume (BP A-L) 48 ml RA Dimensions RA Systolic Major [place] Length (4C) 4.3 cm 2.1-2.7 RA Area (4C) 12.0 cm2 <=18.0 Report Signatures
[2025-10-30] MEDS: PERFLUTREN LIPID MICROSPHERES 1.5 ML VIAL DILUTED TO 10 ML TOTAL VOLUME IV PUSH (08:30)
--- NOTE | 2025-10-30 08:53 | IVDEFINITY ---
Prior to administration of IV Definity the patient was educated on the risks and benefits of the imaging enhancing agent including potential adverse side effects. The patient verbalized understanding. Allergies were verified. No exclusion criteria were identified and at least one of the following inclusion criteria were met: 1) physician request, 2) patient technically difficult to image (per the [place] [employer] guidelines of two or more segments not discernable within the apical view), or 3) questionable left ventricular function. ?
== END 2025-10-30 07:31 | disposition home or self-care (01) ==
LOC: ANHCARD 07:32
PROVIDERS: PCP Internal Medicine Infectious Disease; Visit Provider Internal Medicine Cardiovascular Disease
DX: I50.22 Chronic systolic (congestive) heart failure (principal)
CPT/HCPCS: C8929; Q9957